=== PATIENT | female | born 1985 | race Caucasian/White ===

== ENCOUNTER 2025-03-09 09:05 | Outpatient (CLI) | payer MEDICAID, SELFPAY ==
--- NOTE | 2025-03-09 09:09 | CT_ITS ---
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 A noncontrast coronary calcium scan was performed. A CT attenuation threshold of 130 Hounsfield units (HU) was used for the detection of calcium in contiguous voxels of 1 sq mm in area to be counted as individual lesions. Bolus tracking in the ascending aorta with a threshold of 180 HU was performed. Immediately afterwards, ECG synchronized cardiac CT was then performed from the cardiac base to apex using retrospective gating with ECG tube current modulation. A total of 85 mL of Isovue 370 mg/mL contrast medium was administered at 5 mL/sec followed by a saline flush using a biphasic injection protocol. A tube voltage of 120 KVp was used. Image Reconstruction Transaxial images were reconstructed at 0.67 mm slide thickness. Data was reviewed interactively on an advanced workstation capable of 2 and 3-dimensional displays in all conventional reconstruction formats, including multiplanar reformations, maximum intensity projections, curved multiplanar reformations, and volume rendered reconstructions. When applicable, selected routine images describing the relevant coronary anatomy and pathology were saved and sent to PACS. Complications None Technical Quality Overall image quality was fair. Coronary artery opacification was fair. Total DLP (Dose-Length Product) is 2341.7 mGy-cm. The reported value represents the total of one or more individual components during the CT acquisition of this date and at this time, and as such, the same value may appear in more than one CT report depending on the interpreting/reporting physicians. COMPARISON None FINDINGS CT Coronary Calcium Scoring LMA (Left Main Artery) = 0 LAD (Left Anterior Descending) = 0 LCX (Left Coronary Circumflex) = 0 RCA (Right Coronary Artery) = 0 Total Calcium Score = 0 using the AJ-130 method. The interpretation of the calcium heart score is based on the following continuum*: 0 = no calcified plaque detected (risk of coronary artery disease is very low ??? less than 5%) 1-10 = calcium detected in extremely minimal levels (risk of coronary diseases is still low ??? less than 10%) 11-100 = mild levels of plaque detected with certainty (mild or minimal narrowing of heart arteries is likely) 101-400 = definite,at least moderate levels of plaque detected (relatively high risk of a heart attack within 3-5 years) >401-999 = extensive levels of plaque detected (high risk of heart attack, high levels of vascular disease are present, high likelihood of at least one significant coronary narrowing) *The calcium heart score quantifies the burden of coronary calcification/plaque in the coronary arteries. The calcium heart score is not able to evaluate the presence or burden of non-calcified (i.e. soft) plaque. There is no identifiable calcification in the aortic valve, mitral annulus or mitral valve, pericardium, or myocardium. Coronary CT Angiography The coronary arterial system is right dominant. Quantitative Stenosis Grading: Left Main (LM): The left main originates normally from the left sinus of Valsalva. The LM bifurcates into the left anterior descending artery and left circumflex artery. The LM is patent with no evidence of atherosclerosis. Left Anterior Descending (LAD) and Diagonal Branches: The LAD gives off 2 diagonal branch(es). The LAD and its branches are patent with no evidence of atherosclerosis. There is no evidence of LAD-myocardial bridge. Left Circumflex (LCX) and Obtuse Marginals (OM): The LCX gives off 1 Obtuse Marginal (OM) branch(es). The LCX and its branches are patent with no evidence of atherosclerosis. Right Coronary Artery (RCA): The RCA originates normally from the right sinus of Valsalva. The RCA gives off a posterior descending artery (PDA) and posterolateral (PL) branches. The RCA and its branches are patent with no evidence of atherosclerosis. Non-Coronary Cardiac Findings: Analysis of the left ventricular (LV) structure and function was performed after 3-D reconstruction of the LV from axial images, with user-corrected automatic contouring for assessment of LV volumes and user-defined reconstruction from oblique planes for measurement of 3-D cardiac structure and function. -The left ventricle systolic function is normal. -There is no left atrial appendage filling defect. Two right pulmonary veins and two left pulmonary veins drain normally into the left atrium. -No pericardial thickening or calcification. -Central and branch pulmonary arteries in the [id number] are unremarkable. -Thoracic aorta within the visualized thoracic aortic-branches in the [id number] is unremarkable. Extracardiac Structures No significant extra-cardiac findings. Note, however, that this study is focused on the cardiac findings. IMPRESSION -Fair image quality. -Absence of coronary calcification with an Agatston score = 0 using the AJ-130 method. -No evidence of significant flow-limiting atherosclerosis of the coronary arteries. -CAD-RADS 0. Management recommendations per ACC/AHA guidelines*, as clinically appropriate. *Recommendations: CAD RADS 0: Reassurance. Consider non-atherosclerotic causes of chest pain. CAD RADS 1: Consider non-atherosclerotic causes of chest pain. Consider preventive therapy and risk factor modification. CAD RADS 2: Consider non-atherosclerotic causes of chest pain. Consider preventive therapy and risk factor modification, particularly for patients with nonobstructive plaque in multiple segments. CAD RADS 3: Consider further functional testing. Consider symptom-guided anti-ischemic and preventive pharmacotherapy as well as risk factor modification per published guideline statements. CAD RADS 4A: Consider further functional testing or invasive coronary angiography with revascularization per published guideline statements. Consider symptom-guided anti-ischemic and preventive pharmacotherapy as well as risk factor modification per published guideline statements. CAD RADS 4B: Invasive coronary angiography recommended with revascularization per published guideline statements. Consider symptom-guided anti-ischemic and preventive pharmacotherapy as well as risk factor modification per published guideline statements. CAD RADS 5: Consider invasive angiography and/or viability assessment with revascularization per published guideline statements. Consider symptom-guided anti-ischemic and preventive pharmacotherapy as well as risk factor modification per published guideline statements. CRITICAL RESULT None COMMUNICATION Per this written report The coronary and cardiac findings of this CCTA were reviewed, reported, and signed by Moustapha Conley MD ([employer]) Conclusion Electronically signed by : Jamia Conley MD 03/13/2025 00:26:20
--- OUTSIDE RECORDS SUMMARY | 2025-03-09 09:09 | XMS_ITS | Data Portability ---
Author Organization [facility] Address [address] [place] [address] Assessment Encounter Date Assessment Date Assessment LastModified by Organization Details LastModified Time 02/06/2024 02/06/2024 -Medications were reviewed and any necessary updates and renewals were made, patient instructed to complete as prescribed. -The potential side effects of medications were discussed. -Counseling was done on care goals and ways to prevent future hospitalizatio ns. -Further treatment per orders listed below. Not available 02/06/2024 15:18:07 04/14/2024 04/14/2024 -Medications were reviewed and any necessary updates and renewals were made, patient instructed to complete as prescribed. -The potential side effects of medications were discussed. -Counseling was done on care goals and ways to prevent future hospitalizatio ns. -Further treatment per orders listed below. Not available 04/14/2024 11:35:05 Plan of Treatment Reminders Order Date Submit Date Provider Last Modified By Organization Details Last Modified Time Details Appointments None recorded. Lab CBC w/ auto diff 2024 025 SARAH [facility], [address], [address], [place], [address], 03:38:41 CMP, serum or plasma 2024 025 SARAH [facility], [address], [address], [place], [address], 03:38:43 TSH + free T4, serum 2024 025 SARAH [facility], [address], [address], [place], [address], 5 03:38:39 magnesium, serum or plasma 2024 025 SARAH [facility], [address], [address], [place], [address], 5 03:38:47 HbA1c (hemoglobin A1c), blood 2024 025 SARAH [facility], [address], [address], [place], [address], 5 03:38:46 cobalamin and folate panel, serum 2024 025 SARAH [facility], [address], [address] [address], [place], [address], 5 03:38:44 vitamin D, 25-hydroxy, total, serum 2024 025 SARAH [facility], [address], [address], [place], [address], 5 03:38:47 iron + total iron-bindin g capacity (TIBC), serum 2024 025 SARAH [facility], [address], [place] [address], [place], [address], 5 03:38:44 rapid SARS CoV + SARS CoV 2 Ag, QL IA, respiratory specimen [address], [address] [place], [address], 5 17:27:37 rapid flu (A+B) [address], [address] [place], [address], 5 17:27:37 rapid strep group A, throat 2024 025 [facility], [address] [place], [address], 5 17:27:37 C reactive protein, QN, serum or plasma 2023 SARAH [facility], [address], [address], [place], [address], 4 16:36:36 ESR (erythrocyt e sedimentati on rate), blood 2023 SARAH [facility], [address], [address], [place], [address], 4 16:36:34 KIN (antinuclea r antibodies) screen, serum 2023 024 SARAH [facility], [address], [address], [place], [address], 4 16:36:33 insulin, serum 2023 024 SARAH [facility], [address], [address] [address], [place], [address], 4 16:36:35 CMP, serum or plasma 2023 024 SARAH [facility], [address], [address], [place], [address], 4 16:36:29 CBC w/ auto diff 2023 024 SARAH [facility], [address], [address], [place], [address], 4 16:36:28 vitamin B12 + folate, serum or blood 2023 024 SARAH [facility], [address], [address], [place], [address], 4 16:36:31 lipid panel, serum 2023 024 SARAH [facility], [address], [address], [place], [address], 4 16:36:30 vitamin D, 25-hydroxy, total, serum 2023 024 SARAH [facility], [address], [address] [address], [place], [address], 4 16:36:33 TSH + free T4, serum 2023 [facility], [address], [place], [address], 4 16:36:27 HbA1c (hemoglobin A1c), blood 2023 024 SARAH [facility], [address], [address], [place], [address], 4 16:36:32 Referral otolaryngol ogist referral 2024 025 SARAH Cano MD, [address] [facility] , [address] [address], [place], [address], 5 07:40:06 Procedures None recorded. Surgeries None recorded. Imaging CT, chest, w/o contrast 2023 024 [facility], [address] [facility] , [place], [address], 4 12:15:37 Medication Orders levocetiriz ine 5 mg tablet 2024 025 [facility], [address] [facility], [place], [address], 5 15:10:15 benzonatate 200 mg capsule 2024 025 [facility], [address] [place] [address], [address], 5 17:05:53 Bromfed DM 2 mg-30 mg-10 mg/5 mL oral syrup [address], [address], 5 17:05:47 famotidine 40 mg tablet [address], [address], 5 15:05:39 doxycycline hyclate 100 mg capsule [address], [address], 4 08:58:21 Medrol (Sj) 4 mg tablets in a dose pack [address], [address], 5 14:28:21 Patient TargetsNo targets recorded. Patient Instructions Encounter Date Encounter Id Patient Instructions Last Modified By Organization Details Last Modified Time 02/06/2024 [id number] body mass index: care instructions Not available 02/06/2024 16:00:32 learning about healthy weight Not available 02/06/2024 16:00:32 Advised to take medication as directed Discussed importance of hydration and rest To call office for questions, concerns or issues Not available 02/06/2024 15:42:19 04/14/2024 [id number] body mass index: care instructions Not available 04/14/2024 17:47:08 learning about healthy weight Not available 04/14/2024 17:47:08 Advised to take medication as directed Encouraged to follow heart healthy lifestyle - low fat diet and aim for 30 minutes per day of physical exercise. To call office for questions, concerns or issues Not available 04/14/2024 11:59:49 07/05/2024 [id number] Advised to take medication as directed Will call with results of labs once available Encouraged to follow heart healthy lifestyle - low fat diet and aim for 30 minutes per day of physical exercise. To call office for questions, concerns or issues Not available 07/05/2024 09:26:56 11/15/2024 [id number] body mass index: care instructions Not available 11/15/2024 17:27:37 learning about healthy weight Not available 11/15/2024 17:27:37 Advised to take medication as directed Discussed importance of hydration To call office for questions, concerns or issues Not available 11/15/2024 15:12:46 12/21/2024 [id number] Advised to take medication as directed Will call with results of labs once available Advised if symptoms return to immediately go to ED - verbalized understanding Encouraged to follow heart healthy lifestyle - low fat diet and aim for 30 minutes per day of physical exercise. 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) [address] [place], [address], 07/06/2024 16:36:27 07/05/2007/06/2024 TSH+F REE T4 T4,free(dire ct) 1.06 NG/dL 0.82-1 .77 normal Not Available [facility] ([facility]) [address] [facility], [place], [address], 07/06/2024 16:36:27 07/05/20 24 07/06/2024 CBC WITH DIFFE RENTI AL/PL ATELE T WBC 10.2 x10e3 /uL 3.4-10 .8 normal Not Available [facility] ([facility]) [address] [facility], [place], [address], 07/06/2024 16:36:28 07/05/20 24 07/06/2024 CBC WITH DIFFE RENTI AL/PL ATELE T RBC 4.58 x10e6 /uL 3.77-5 .28 normal Not Available [facility] ([facility]) [address] [place], [address], 07/06/2024 16:36:28 07/05/20 24 07/06/2024 CBC WITH DIFFE RENTI AL/PL ATELE T hemoglobin 13.0 g/dL 11.1-1 5.9 normal Not Available [facility] ([facility]) [address] [place], [address], 07/06/2024 16:36:28 07/05/20 24 07/06/2024 CBC WITH DIFFE RENTI AL/PL ATELE T hematocrit 41.0 % 34.0-4 6.6 normal Not Available [facility] ([facility]) [address] [place], [address], 07/06/2024 16:36:28 07/05/20 24 07/06/2024 CBC WITH DIFFE RENTI AL/PL ATELE T MCV 90 fL 79-97 normal Not Available [facility] ([facility]) [address] [place], [address], 07/06/2024 16:36:28 07/05/20 24 07/06/2024 CBC WITH DIFFE RENTI AL/PL ATELE T MCH 28.4 pg 26.6-3 3.0 normal Not Available [facility] ([facility]) [address] [place], [address], 07/06/2024 16:36:28 07/05/20 24 07/06/2024 CBC WITH DIFFE RENTI AL/PL ATELE T MCHC 31.7 g/dL 31.5-3 5.7 normal Not Available [facility] ([facility]) [address] [facility], [place], [address], 07/06/2024 16:36:28 07/05/20 24 07/06/2024 CBC WITH DIFFE RENTI AL/PL ATELE T RDW 12.9 % 11.7-1 5.4 Not Available [facility] ([facility]) [address] [facility], [place], [address], 07/06/2024 16:36:28 07/05/20 24 07/06/2024 CBC WITH DIFFE RENTI AL/PL ATELE T platelets 344 x10e3 /uL 150-45 0 normal Not Available [facility] ([facility]) [address] [facility], [place], [address], 07/06/2024 16:36:28 07/05/20 24 07/06/2024 CBC WITH DIFFE RENTI AL/PL ATELE T neutrophils 75 % not estab. normal Not Available [facility] ([facility]) [address] [facility], [place], [address], 07/06/2024 16:36:28 07/05/20 24 07/06/2024 CBC WITH DIFFE RENTI AL/PL ATELE T lymphs 16 % not estab. normal Not Available [facility] ([facility]) [address] [facility], [place], [address], 07/06/2024 16:36:28 07/05/20 24 07/06/2024 CBC WITH DIFFE RENTI AL/PL ATELE T monocytes 6 % not estab. normal Not Available [facility] ([facility]) [address] [facility], [place], [address], 07/06/2024 16:36:28 07/05/20 24 07/06/2024 CBC WITH DIFFE RENTI AL/PL ATELE T eos 2 % not estab. normal Not Available [facility] ([facility]) [address] [place], [address], 07/06/2024 16:36:28 07/05/20 24 07/06/2024 CBC WITH DIFFE RENTI AL/PL ATELE T basos 1 % not estab. normal Not Available [facility] ([facility]) [address] [facility], [place], [address], 07/06/2024 16:36:28 07/05/20 24 07/06/2024 CBC WITH DIFFE RENTI AL/PL ATELE T immature cells TITLE ABSTRACTOR Not Available [facility] ([facility]) [address] [place], [address], 07/06/2024 16:36:28 07/05/20 24 07/06/2024 CBC WITH DIFFE RENTI AL/PL ATELE T neutrophils (absolute) 7.7 x10e3 /uL 1.4-7. 0 above high normal Not Available [facility] ([facility]) [address] [place], [address], 07/06/2024 16:36:28 07/05/20 24 07/06/2024 CBC WITH DIFFE RENTI AL/PL ATELE T lymphs (absolute) 1.6 x10e3 /uL 0.7-3. 1 normal Not Available [facility] ([facility]) [address] [place], [address], 07/06/2024 16:36:28 07/05/20 24 07/06/2024 CBC WITH DIFFE RENTI AL/PL ATELE T monocytes(ab solute) 0.6 x10e3 /uL 0.1-0. 9 normal Not Available [facility] ([facility]) [address] [place], [address], 07/06/2024 16:36:28 07/05/20 24 07/06/2024 CBC WITH DIFFE RENTI AL/PL ATELE T eos (absolute) 0.2 x10e3 /uL 0.0-0. 4 normal Not Available [facility] ([facility]) [address] [facility], [place], [address], 07/06/2024 16:36:28 07/05/20 24 07/06/2024 CBC WITH DIFFE RENTI AL/PL ATELE T baso (absolute) 0.1 x10e3 /uL 0.0-0. 2 normal Not Available [facility] ([facility]) [address] [facility], [place], [address], 07/06/2024 16:36:28 07/05/20 24 07/06/2024 CBC WITH DIFFE RENTI AL/PL ATELE T immature granulocytes 0 % not estab. Not Available [facility] ([facility]) [address] [facility], [place], [address], 07/06/2024 16:36:28 07/05/20 24 07/06/2024 CBC WITH DIFFE RENTI AL/PL ATELE T immature grans (abs) 0.0 x10e3 /uL 0.0-0. 1 Not Available [facility] ([facility]) [address] [facility], [place], [address], 07/06/2024 16:36:28 07/05/20 24 07/06/2024 CBC WITH DIFFE RENTI AL/PL ATELE T NRBC TITLE ABSTRACTOR Not Available [facility] ([facility]) [address] [facility], [place], [address], 07/06/2024 16:36:28 07/05/20 24 07/06/2024 CBC WITH DIFFE RENTI AL/PL ATELE T hematology comments: TITLE ABSTRACTOR Not Available [facility] ([facility]) [address] [facility], [place], [address], 07/06/2024 16:36:28 07/05/20 24 07/06/2024 COMP. METAB OLIC PANEL (14) glucose 102 mg/dL 70-99 above high normal Not Available [facility] ([facility]) [address] [place], [address], 07/06/2024 16:36:29 07/05/20 24 07/06/2024 COMP. METAB OLIC PANEL (14) BUN 16 mg/dL 6-20 normal Not Available [facility] ([facility]) [address] [place], [address], 07/06/2024 16:36:29 07/05/20 24 07/06/2024 COMP. METAB OLIC PANEL (14) creatinine 0.72 mg/dL 0.57-1 .00 normal Not Available [facility] ([facility]) [address] [place], [address], 07/06/2024 16:36:29 07/05/20 24 07/06/2024 COMP. METAB OLIC PANEL (14) eGFR 110 mL/mi n/1.7 3 >59 normal Not Available [facility] ([facility]) [address] [place], [address], 07/06/2024 16:36:29 07/05/20 24 07/06/2024 COMP. METAB OLIC PANEL (14) BUN/creatini ne ratio 22 9-23 normal Not Available [facility] ([facility]) [address] [place], [address], 07/06/2024 16:36:29 07/05/20 24 07/06/2024 COMP. METAB OLIC PANEL (14) sodium 140 mmol/ L 134-14 4 normal Not Available [facility] ([facility]) [address] [place], [address], 07/06/2024 16:36:29 07/05/20 24 07/06/2024 COMP. METAB OLIC PANEL (14) potassium 4.4 mmol/ L 3.5-5. 2 normal Not Available [facility] ([facility]) [address] [place], [address], 07/06/2024 16:36:29 07/05/20 24 07/06/2024 COMP. METAB OLIC PANEL (14) chloride 103 mmol/ L 96-106 normal Not Available [facility] ([facility]) [address] [place], [address], 07/06/2024 16:36:29 07/05/20 24 07/06/2024 COMP. METAB OLIC PANEL (14) carbon dioxide, total 23 mmol/ L 20-29 normal Not Available [facility] ([facility]) [address] [place], [address], 07/06/2024 16:36:29 07/05/20 24 07/06/2024 COMP. METAB OLIC PANEL (14) calcium 9.2 mg/dL 8.7-10 .2 normal Not Available [facility] ([facility]) [address] [place], [address], 07/06/2024 16:36:29 07/05/20 24 07/06/2024 COMP. METAB OLIC PANEL (14) protein, total 7.0 g/dL 6.0-8. 5 normal Not Available [facility] ([facility]) [address] [place], [address], 07/06/2024 16:36:29 07/05/20 24 07/06/2024 COMP. METAB OLIC PANEL (14) albumin 3.7 g/dL 3.9-4. 9 below low normal Not Available [facility] ([facility]) [address] [place], [address], 07/06/2024 16:36:29 07/05/20 24 07/06/2024 COMP. METAB OLIC PANEL (14) globulin, total 3.3 g/dL 1.5-4. 5 Not Available [facility] ([facility]) [address] [place], [address], 07/06/2024 16:36:29 07/05/20 24 07/06/2024 COMP. METAB OLIC PANEL (14) bilirubin, total <0.2 mg/dL 0.0-1. 2 Not Available [facility] ([facility]) [address] [place], [address], 07/06/2024 16:36:29 07/05/20 24 07/06/2024 COMP. METAB OLIC PANEL (14) alkaline phosphatase 107 IU/L 44-121 normal Not Available [facility] ([facility]) [address] [place], [address], 07/06/2024 16:36:29 07/05/20 24 07/06/2024 COMP. METAB OLIC PANEL (14) AST (SGOT) 41 IU/L 0-40 above high normal Not Available [facility] ([facility]) [address] [place], [address], 07/06/2024 16:36:29 07/05/20 24 07/06/2024 COMP. METAB OLIC PANEL (14) ALT (SGPT) 37 IU/L 0-32 above high normal Not Available [facility] ([facility]) [address] [place], [address], 07/06/2024 16:36:29 07/05/20 24 07/06/2024 LIPID PANEL cholesterol, total 127 mg/dL 100-19 9 normal Not Available [facility] ([facility]) [address] [place], [address], 07/06/2024 16:36:30 07/05/20 24 07/06/2024 LIPID PANEL triglyceride s 103 mg/dL 0-149 normal Not Available [facility] ([facility]) [address] [facility] [place], [address], 07/06/2024 16:36:30 07/05/20 24 07/06/2024 LIPID PANEL HDL cholesterol 37 mg/dL >39 below low normal Not Available [facility] ([facility]) [address] [facility], [place], [address], 07/06/2024 16:36:30 07/05/20 24 07/06/2024 LIPID PANEL VLDL cholesterol martin 19 mg/dL 5-40 Not Available [facility] ([facility]) [address] [facility], [place], [address], 07/06/2024 16:36:30 07/05/20 24 07/06/2024 LIPID PANEL LDL chol calc ([facility]) 71 mg/dL 0-99 Not Available [facility]) [address] [facility], [place], [address], 07/06/2024 16:36:30 07/05/20 24 07/06/2024 LIPID PANEL LDL calc comment: TITLE ABSTRACTOR Not Available [facility] ([facility]) [address] [facility], [place], [address], 07/06/2024 16:36:30 07/05/20 24 07/06/2024 VITAM IN B12 AND FOLAT E vitamin B12 335 pg/mL 232-12 45 normal Not Available [facility] ([facility]) [address] [facility], [place], [address], 07/06/2024 16:36:31 07/05/20 24 07/06/2024 VITAM IN B12 AND FOLAT E folate (folic acid), serum <2.0 NG/mL >3.0 below low normal Amanda ified by janea doug clarence sis A serum folat e bettie ntrat ion of less than 3.1 ng/mL is consi dered to repre sent clini martin defic iency . Not Available [facility] ([facility]) [address] [facility], [place], [address], 07/06/2024 16:36:31 07/05/20 24 07/06/2024 HEMOG LOBIN A1C hemoglobin A1C 6.3 % 4.8-5. 6 above high normal Predi abete s: 5.7 - 6.4 Diabe darnell: >6.4 Glyce stephanie contr ol for adult s with diabe darnell: <7.0 Not Available [facility] ([facility]) [address] [facility], [place], [address], 07/06/2024 16:36:32 07/05/20 24 07/06/2024 VITAM IN D, 25-HY DROXY vitamin D, 25-hydroxy 18.7 NG/mL 30.0-1 00.0 below low normal Vitam in D defic iency has been defin ed by the [facility] and an Endoc rine Socie ty pract ice guide line as a level of serum 25-OH vitam in D less than 20 ng/mL (1,2) . The Endoc rine Socie ty went on to furth er defin e vitam in D insuf ficie ncy as a level betwe en 21 and 29 ng/mL (2). 1. IOM ([facility]). 2009. Dieta ry refer ence huan es for calci um and D. Leah styles [place]: The [facility] . 2. Ford dias MF, Madeleine ey [place], Scooter off-F errar i WALTON, et al. Evalu ation , treat ment, and preve ntion of vitam in D defic iency : an Endoc rine Socie ty clini martin pract ice guide line. JCEM. 2010; 96(7) :1911 -30. Not Available [facility] ([facility]) [address] [facility], [place], [address], 07/06/2024 16:36:33 07/05/20 24 07/06/2024 ANTIN UCLEA R AB MULTI PLEX RFX 9 KIN direct Negati ve negati ve Not Available [facility] ([facility]) [address] [facility], [place], [address], 07/06/2024 16:36:33 07/05/20 24 07/06/2024 SEDIM ENTAT ION RATE- WESTE RGREN sedimentatio n rate-westerg mis 81 mm/HR 0-32 above high normal Not Available [facility] ([facility]) [address] [facility], [place], [address], 07/06/2024 16:36:34 07/05/20 24 07/06/2024 INSUL IN insulin 65.0 uIU/m L 2.6-24 .9 above high normal Not Available [facility] ([facility]) [address] [facility], [place], [address], 07/06/2024 16:36:35 07/05/20 24 07/06/2024 C-GRACE CTIVE PROTE IN, QUANT C-reactive protein, quant 21 mg/L 0-10 above high normal Not Available [facility] ([facility]) [address] [facility], [place], [address], 07/06/2024 16:36:36 11/16/19 25 11/15/2024 rapid flu (A+B) Flu negati ve Not Available [address] [address] [place], [address], 11/15/2024 14:37:20 11/16/19 25 11/15/2024 rapid SARS CoV + SARS CoV 2 Ag, QL IA, respi rator y speci men SARS CoV antigen Negati ve Not Available [facility] [address] [place], [address], 11/15/2024 14:37:12 11/16/19 25 11/15/2024 rapid strep group A, throa t Strep negati ve Not Available [facility] [address] [place], [address], 11/15/2024 14:37:21 12/22/19 25 12/22/2024 TSH+F REE T4 TSH 2.040 uIU/m L 0.450- 4.500 normal Not Available [facility] ([facility]) [address] [place], [address], 12/23/2024 03:38:39 12/22/19 25 12/22/2024 TSH+F REE T4 T4,free(dire ct) 0.99 NG/dL 0.82-1 .77 normal Not Available [facility] ([facility]) [address] [place], [address], 12/23/2024 03:38:39 12/22/19 25 12/22/2024 CBC WITH DIFFE RENTI AL/PL ATELE T WBC 12.7 x10e3 /uL 3.4-10 .8 above high normal Not Available [facility] ([facility]) [address] [place], [address], 12/23/2024 03:38:41 12/22/19 25 12/22/2024 CBC WITH DIFFE RENTI AL/PL ATELE T RBC 4.51 x10e6 /uL 3.77-5 .28 normal Not Available [facility] ([facility]) [address] [place], [address], 12/23/2024 03:38:41 12/22/19 25 12/22/2024 CBC WITH DIFFE RENTI AL/PL ATELE T hemoglobin 12.6 g/dL 11.1-1 5.9 normal Not Available [facility] ([facility]) [address] [place], [address], 12/23/2024 03:38:41 12/22/19 25 12/22/2024 CBC WITH DIFFE RENTI AL/PL ATELE T hematocrit 39.0 % 34.0-4 6.6 normal Not Available [facility] ([facility]) [address] [place], [address], 12/23/2024 03:38:41 12/22/19 25 12/22/2024 CBC WITH DIFFE RENTI AL/PL ATELE T MCV 87 fL 79-97 normal Not Available [facility] ([facility]) [address] [facility], [place], [address], 12/23/2024 03:38:41 12/22/19 25 12/22/2024 CBC WITH DIFFE RENTI AL/PL ATELE T MCH 27.9 pg 26.6-3 3.0 normal Not Available [facility] ([facility]) [address] [facility], [place], [address], 12/23/2024 03:38:41 12/22/19 25 12/22/2024 CBC WITH DIFFE RENTI AL/PL ATELE T MCHC 32.3 g/dL 31.5-3 5.7 normal Not Available [facility] ([facility]) [address] [facility], [place], [address], 12/23/2024 03:38:41 12/22/19 25 12/22/2024 CBC WITH DIFFE RENTI AL/PL ATELE T RDW 13.2 % 11.7-1 5.4 Not Available [facility] ([facility]) [address] [facility], [place], [address], 12/23/2024 03:38:41 12/22/19 25 12/22/2024 CBC WITH DIFFE RENTI AL/PL ATELE T platelets 306 x10e3 /uL 150-45 0 normal Not Available [facility] ([facility]) [address] [facility], [place], [address], 12/23/2024 03:38:41 12/22/19 25 12/22/2024 CBC WITH DIFFE RENTI AL/PL ATELE T neutrophils 73 % not estab. normal Not Available [facility] ([facility]) [address] [facility], [place], [address], 12/23/2024 03:38:41 12/22/19 25 12/22/2024 CBC WITH DIFFE RENTI AL/PL ATELE T lymphs 17 % not estab. normal Not Available [facility] ([facility]) [address] [facility], [place], [address], 12/23/2024 03:38:41 12/22/19 25 12/22/2024 CBC WITH DIFFE RENTI AL/PL ATELE T monocytes 7 % not estab. normal Not Available [facility] ([facility]) [address] [facility], [place], [address], 12/23/2024 03:38:41 12/22/19 25 12/22/2024 CBC WITH DIFFE RENTI AL/PL ATELE T eos 2 % not estab. normal Not Available [facility] ([facility]) [address] [facility], [place], [address], 12/23/2024 03:38:41 12/22/19 25 12/22/2024 CBC WITH DIFFE RENTI AL/PL ATELE T basos 1 % not estab. normal Not Available [facility] ([facility]) [address] [place], [address], 12/23/2024 03:38:41 12/22/19 25 12/22/2024 CBC WITH DIFFE RENTI AL/PL ATELE T immature cells TITLE ABSTRACTOR Not Available [facility] ([facility]) [address] [place], [address], 12/23/2024 03:38:41 12/22/19 25 12/22/2024 CBC WITH DIFFE RENTI AL/PL ATELE T neutrophils (absolute) 9.4 x10e3 /uL 1.4-7. 0 above high normal Not Available [facility] ([facility]) [address] [facility], [place], [place], [address], 12/23/2024 03:38:41 12/22/19 25 12/22/2024 CBC WITH DIFFE RENTI AL/PL ATELE T lymphs (absolute) 2.2 x10e3 /uL 0.7-3. 1 normal Not Available [facility] ([facility]) [address] [facility], [place], [address], 12/23/2024 03:38:41 12/22/19 25 12/22/2024 CBC WITH DIFFE RENTI AL/PL ATELE T monocytes(ab solute) 0.8 x10e3 /uL 0.1-0. 9 normal Not Available [facility] ([facility]) [address] [facility], [place], [address], 12/23/2024 03:38:41 12/22/19 25 12/22/2024 CBC WITH DIFFE RENTI AL/PL ATELE T eos (absolute) 0.2 x10e3 /uL 0.0-0. 4 normal Not Available [facility] ([facility]) [address] [place], [address], 12/23/2024 03:38:41 12/22/19 25 12/22/2024 CBC WITH DIFFE RENTI AL/PL ATELE T baso (absolute) 0.1 x10e3 /uL 0.0-0. 2 normal Not Available [facility] ([facility]) [address] [facility], [place], [address], 12/23/2024 03:38:41 12/22/19 25 12/22/2024 CBC WITH DIFFE RENTI AL/PL ATELE T immature granulocytes 0 % not estab. Not Available [facility] ([facility]) [address] [place], [address], 12/23/2024 03:38:41 12/22/19 25 12/22/2024 CBC WITH DIFFE RENTI AL/PL ATELE T immature grans (abs) 0.0 x10e3 /uL 0.0-0. 1 Not Available [facility] ([facility]) [address] [place], [address], 12/23/2024 03:38:41 12/22/19 25 12/22/2024 CBC WITH DIFFE RENTI AL/PL ATELE T NRBC TITLE ABSTRACTOR Not Available [facility] ([facility]) [address] [facility], [place], [address], 12/23/2024 03:38:41 12/22/19 25 12/22/2024 CBC WITH DIFFE RENTI AL/PL ATELE T hematology comments: TITLE ABSTRACTOR Not Available [facility] ([facility]) [address] [facility], [place], [address], 12/23/2024 03:38:41 12/22/19 25 12/22/2024 COMP. METAB OLIC PANEL (14) glucose 90 mg/dL 70-99 normal Not Available [facility] ([facility]) [address] [facility], [place], [address], 12/23/2024 03:38:43 12/22/19 25 12/22/2024 COMP. METAB OLIC PANEL (14) BUN 10 mg/dL 6-20 normal Not Available [facility] ([facility]) [address] [place], [address], 12/23/2024 03:38:43 12/22/19 25 12/22/2024 COMP. METAB OLIC PANEL (14) creatinine 0.59 mg/dL 0.57-1 .00 normal Not Available [facility] ([facility]) [address] [facility], [place], [address], 12/23/2024 03:38:43 12/22/19 25 12/22/2024 COMP. METAB OLIC PANEL (14) eGFR 118 mL/mi n/1.7 3 >59 normal Not Available [facility] ([facility]) [address] [place], [address], 12/23/2024 03:38:43 12/22/19 25 12/22/2024 COMP. METAB OLIC PANEL (14) BUN/creatini ne ratio 17 9-23 normal Not Available [facility] ([facility]) [address] [facility] [place], [address], 12/23/2024 03:38:43 12/22/19 25 12/22/2024 COMP. METAB OLIC PANEL (14) sodium 140 mmol/ L 134-14 4 normal Not Available [facility] ([facility]) [address] [facility] [place], [address], 12/23/2024 03:38:43 12/22/19 25 12/22/2024 COMP. METAB OLIC PANEL (14) potassium 4.4 mmol/ L 3.5-5. 2 normal Not Available [facility] ([facility]) [address] [facility] [place], [address], 12/23/2024 03:38:43 12/22/19 25 12/22/2024 COMP. METAB OLIC PANEL (14) chloride 101 mmol/ L 96-106 normal Not Available [facility] ([facility]) [address] [facility] [place], [address], 12/23/2024 03:38:43 12/22/19 25 12/22/2024 COMP. METAB OLIC PANEL (14) carbon dioxide, total 25 mmol/ L 20-29 normal Not Available [facility] ([facility]) [address] [facility] [place], [address], 12/23/2024 03:38:43 12/22/19 25 12/22/2024 COMP. METAB OLIC PANEL (14) calcium 9.3 mg/dL 8.7-10 .2 normal Not Available [facility] ([facility]) [address] [facility] [place], [address], 12/23/2024 03:38:43 12/22/19 25 12/22/2024 COMP. METAB OLIC PANEL (14) protein, total 6.9 g/dL 6.0-8. 5 normal Not Available [facility] ([facility]) [address] [place], [address], 12/23/2024 03:38:43 12/22/19 25 12/22/2024 COMP. METAB OLIC PANEL (14) albumin 3.7 g/dL 3.9-4. 9 below low normal Not Available [facility] ([facility]) [address] [place], [address], 12/23/2024 03:38:43 12/22/19 25 12/22/2024 COMP. METAB OLIC PANEL (14) globulin, total 3.2 g/dL 1.5-4. 5 Not Available [facility] ([facility]) [address] [facility] [place], [address], 12/23/2024 03:38:43 12/22/19 25 12/22/2024 COMP. METAB OLIC PANEL (14) bilirubin, total 0.3 mg/dL 0.0-1. 2 normal Not Available [facility] ([facility]) [address] [facility], [place], [address], 12/23/2024 03:38:43 12/22/19 25 12/22/2024 COMP. METAB OLIC PANEL (14) alkaline phosphatase 113 IU/L 44-121 normal Not Available [facility] ([facility]) [address] [facility] [place], [address], 12/23/2024 03:38:43 12/22/19 25 12/22/2024 COMP. METAB OLIC PANEL (14) AST (SGOT) 16 IU/L 0-40 normal Not Available [facility] ([facility]) [address] [facility] [place], [address], 12/23/2024 03:38:43 12/22/19 25 12/22/2024 COMP. METAB OLIC PANEL (14) ALT (SGPT) 21 IU/L 0-32 normal Not Available [facility] ([facility]) [address] [place] [place], [address], 12/23/2024 03:38:43 12/22/19 25 12/22/2024 IRON AND TIBC iron bind.cap.(TI BC) 340 ug/dL 250-45 0 normal Not Available [facility] ([facility]) [address] [place], [address], 12/23/2024 03:38:44 12/22/19 25 12/22/2024 IRON AND TIBC UIBC 289 ug/dL 131-42 5 normal Not Available [facility] ([facility]) [address] [place], [address], 12/23/2024 03:38:44 12/22/19 25 12/22/2024 IRON AND TIBC iron 51 ug/dL 27-159 normal Not Available [facility] ([facility]) [address] [place], [address], 12/23/2024 03:38:44 12/22/19 25 12/22/2024 IRON AND TIBC iron saturation 15 % 15-55 normal Not Available [facility] ([facility]) [address] [place], [address], 12/23/2024 03:38:44 12/22/19 25 12/22/2024 VITAM IN B12 AND FOLAT E vitamin B12 388 pg/mL 232-12 45 normal Not Available [facility] ([facility]) [address] [place], [address], 12/23/2024 03:38:44 12/22/19 25 12/22/2024 VITAM IN B12 AND FOLAT E folate (folic acid), serum 2.9 NG/mL >3.0 below low normal A serum folat e bettie ntrat ion of less than 3.1 ng/mL is consi dered to repre sent clini martin defic iency . Not Available [facility] ([facility]) [address] [place], [address], 12/23/2024 03:38:44 12/22/19 25 12/22/2024 HEMOG LOBIN A1C hemoglobin A1C 6.1 % 4.8-5. 6 above high normal Predi abete s: 5.7 - 6.4 Diabe darnell: >6.4 Glyce stephanie contr ol for adult s with diabe darnell: <7.0 Not Available [facility] ([facility]) [address] [facility], [place], [address], 12/23/2024 03:38:45 12/22/19 25 12/22/2024 VITAM IN D, 25-HY DROXY vitamin D, 25-hydroxy 30.7 NG/mL 30.0-1 00.0 Vitam in D defic iency has been defin ed by the Insti tute of Medic ine and an Endoc rine Socie ty pract ice guide line as a level of serum 25-OH vitam in D less than 20 ng/mL (1,2) . The Endoc rine Socie ty went on to furth er defin e vitam in D insuf ficie ncy as a level betwe en 21 and 29 ng/mL (2). 1. IOM (Inst itute of Medic ine). 2009. Dieta ry refer ence huan es for calci um and D. Leah styles [place]: [facility] . 2. Ford dias [place], Madeleine ey [place], Scooter off-F errar i [place], et al. Evalu ation , treat ment, and preve ntion of vitam in D defic iency : an Endoc rine Socie ty clini martin pract ice guide line. JCEM. 2010; 96(7) :1911 -30. Not Available [facility] ([facility]) [address] [facility], [place], [address], 12/23/2024 03:38:47 12/22/19 25 12/22/2024 MAGNE SIUM magnesium 2.3 mg/dL 1.6-2. 3 normal Not Available [facility] ([facility]) [address] [facility], [place], [address], 12/23/2024 03:38:47 04/12/20 24 03/29/2024 XR, chest , 2 view No observ ation record ed. Not Available 2023 11:59:18 05/05/20 24 04/28/2024 CT, chest , w/o contr ast No observ ation record ed. [address] , [place], [address], 05/05/2024 16:41:29 07/05/20 24 06/24/2024 MRI, brain , w/wo contr ast No observ ation record ed. Not Available 2023 12:26:08 Result Notes None recorded. Problems Name Problem SNOMED Code Status Onset Date Resolution Date Notes Provider Name and Address Organization Details Recorded Time Condylom a acuminat a of vulva 242474525 Completed 201711/06/2017 Leigh Ann hein, [place] - [facility] 8 09:15:57 Anemia 389556377 Completed 201711/06/2017 Leigh Ann hein, [place] - [facility] 8 09:31:27 Disorder of vitamin B12 971352242 Completed 201711/06/2017 Leigh Ann [place]in, [place] - [facility] 8 09:31:34 Morbid obesity 999521632 Active 2018 Bella Miranda MD [address], [place], [address] , [place] - [facility] 3 18:56:06 Essentia l hyperten gilberto 95065383 Active 2019 Crystal Abigail null[place] - [facility] 2 15:04:24 Asthma 949218847 Active 2019 Crystal Abigail null[place] [facility] 2 15:04:24 Suspecte d COVID-19 990503141 Completed 10/26/2020 Removal Reason: Problem added by user from the COVID-19 watch flag Crystal Abigail null[place] [facility] 1 09:14:54 Anxiety 51907092 Active 2020 Crystal Abigail [place] [facility] 15:04:24 Tachycar gregorio 6837706 Active 2020 Crystal Abigail [place] [facility] 2 15:04:24 Suspecte d COVID-19 694891516 Completed 07/13/2021 Removal Reason: Problem marked historic al by user from the COVID-19 watch flag Crystal Abigail null[place] [facility] 1 09:14:54 Abnormal uterine bleeding 04174617549 100 Active Bella Miranda MD [address], [place], [address] , [place] [facility] 3 18:55:49 Intraute rine contrace ptive device in situ 902830499 Active 2021 Bella Miranda MD [address], [place], [address] , [place] [facility] 3 18:56:00 Cyst of right ovary 69366550308 015232 Completed 202108/18/2023 Bella Miranda MD [address], [place], [address] , [place] [facility] 3 18:55:54 COVID-19 479109878 Completed 202107/11/2022 Crystal Abigail [place] [facility] 2 10:30:37 Allergic rhinitis 48100712 Active 2021 May Blanco APRN [address], [place], [address] , [place] [facility] 2 10:41:33 Menorrha trevon 614269756 Active 2022 Bella Miranda MD [address], [place], [address] , [place] [facility] 3 18:56:10 Gastroes ophageal reflux disease 220093037 Active 2022 May Blanco APRN [address], [place], [address] , [place] [facility] 13:23:34 Acute sinusiti s 27421905 Completed 202203/28/2023 Crystal Abigail null[place] [facility] 4 15:02:05 Herpes labialis 1936653 Active 2022 May Blanco, [employer] [address], [place], [address] , [place] [facility] 3 10:28:46 Pharyngi tis 389353952 Completed 202201/20/2024 Crystal Abigail null[place] [facility] 4 16:39:51 Mixed anxiety and depressi ve disorder 076498886 Active 2022 May Blanco, [employer] [address], [place], [address] , [place] [facility] 3 14:28:59 Acute lower respirat ory tract infectio n 643209002 Completed 202304/14/2024 Crystal Abigail null[place] [facility] 4 11:35:25 Nodule of lung 956955953 Active 2023 May Blanco, [employer] [address], [place], [address] , [place] [facility] 4 15:38:18 Acute sinusiti s 94879959 Completed 202307/12/2024 Crystal Abigail null[place] [facility] 4 15:02:05 Visual impairme nt 213035176 Active 2023 May Blanco, [employer] [address], [place], [address] , [place] [facility] 4 09:23:02 Hyperins ulinism 30163182 Active 2023 May Blanco, [employer] [address], [place], [address] , [place] [facility] 4 17:36:36 Vitamin D deficien cy 61823394 Active 2023 May Blanco, [employer] [address], [place], [address] , [place] [facility] 4 17:36:53 Visual disturba nce 23783145 Active 2023 May Blanco, [employer] [address], [place], [address] , [place] - [facility] 4 17:38:44 C-reacti ve protein above referenc e range 29072030070 9104 Active 2023 May Blanco, [employer] [address], [place], [address] , [place] [facility] 4 17:39:04 Prediabe darnell 377458910 Active 2023 Crystal Abigail null[place] [facility] 4 15:03:06 Seasonal allergy 691216572 Active 2024 May Blanco, [employer] [address], [place], [address] , [place] [facility] 5 15:08:48 Cough 84369642 Active 2024 May Blanco, [employer] [address], [place], [address] , [place] [facility] 5 15:09:25 Vasovaga l syncope 636084700 Active 2024 May Blanco, [employer] [address], [place], [address] , [place] [facility] 5 17:18:55 Vertigo 071187074 Active 2024 May Blanco, [employer] [address], [place], [address] , [place] [facility] 5 17:22:43 Problem Notes None recorded. Procedures Surgical History Date Name Laterality Status Provider Name and Address Organization Details Recorded Time 04/14/20 24 Medication Reconcilliation completed Crystal Abigail [place] - [facility] 04/14/2024 11:35:05 02/06/20 24 Medication Reconcilliation completed Crystal Abigail [place] [facility] 02/06/2024 15:18:07 05/22/20 23 Endometrial Biopsy completed Bella Miranda MD [address], [place], [address], [place] [facility] 05/22/2023 14:28:52 05/19/20 23 Medication Reconcilliation completed Luz Marina Campbell [place] [facility] 05/19/2023 09:12:00 05/03/20 22 Medication Reconcilliation completed Mariya Smith APRN [address], [place], [address], [place] [facility] 05/03/2022 22:55:10 07/04/20 21 IUD Insertion (Mirena) completed Bella Miranda MD [address], [place], [address], [place] [facility] 07/05/2021 09:45:25 06/01/20 21 dilation and curettage completed Mihaela Tune [place] [facility] 06/12/2021 08:32:50 06/01/20 21 Hysteroscopy completed Mihaela Paniagua [place] [facility] 06/12/2021 08:33:10 05/17/20 21 Medication Reconcilliation completed Crystal Abigail [place] [facility] 05/17/2021 14:48:50 02/17/20 21 Endometrial Biopsy completed Bella Miranda MD [address], [place], [address], [place] [facility] 02/19/2021 12:37:24 01/19/20 21 Medication Reconcilliation completed Crystal Abigail [place] [facility] 01/18/2021 08:30:10 01/09/20 21 Date of Last Pap Smear completed Delia Mack [place] [facility] 01/12/2021 16:35:09 10/28/19 21 Systolic B/P less than 130 mm Hg completed Crystal Abigail [place] [facility] 10/27/2020 08:45:01 10/28/19 21 Diastolic B/P 80-89 mm Hg completed Crystal Abigail [place] [facility] 10/27/2020 08:45:06 08/22/20 20 Medication Reconcilliation completed Mariya Smith APRN [address], [place], [address], [place] [facility] 08/21/2020 22:13:55 08/04/20 20 Diastolic B/P greater than or equal to 90 mm Hg completed Crystal Abigail [place] [facility] 08/04/2020 13:28:22 08/04/20 20 Systolic B/P greater than or equal to 140 mm Hg completed Crystal Abigail [place] [facility] 08/04/2020 13:28:18 05/05/20 20 Diastolic B/P 80-89 mm Hg completed Crystal Abigail [place] [facility] 05/05/2020 13:05:28 05/05/20 20 Systolic B/P greater than or equal to 140 mm Hg completed Crystal Abigail [place] [facility] 05/05/2020 13:05:25 04/17/20 20 Cholecystectomy, laparoscopic completed Crystal Abigail [place] [facility] 05/05/2020 13:04:07 03/30/20 20 Diastolic B/P greater than or equal to 90 mm Hg completed Crystal Abigail [place] [facility] 03/30/2020 16:42:42 03/30/20 20 Systolic B/P greater than or equal to 140 mm Hg completed Crystal Abigail [place] [facility] 03/30/2020 16:42:40 03/17/20 20 Diastolic B/P greater than or equal to 90 mm Hg completed Crystal Abigail [place] [facility] 03/17/2020 13:19:48 03/17/20 20 Systolic B/P greater than or equal to 140 mm Hg completed Crystal Abigail [place] [facility] 03/17/2020 13:19:46 02/10/20 12 Tubal Ligation completed Leigh Ann Lewis [place] [facility] 11/06/2017 09:24:51 08/25/18 95 Unlisted procedure nose completed Ayeshalg Beebe [place] [facility] 05/13/2019 08:34:21 Imaging Results None recorded. Procedure Notes None recorded. Medical Equipment None Reported. Allergies Allergen ID Allergen Name Allergen Category Reaction Reaction Severity Criticality Documentation Date Start Date Code Code System Note Provider Name and Address Organization Details Recorded Time 60853 morphine sulfate medicatio n Not available Not available Not available 05/31/20162007 40548 RxNorm Comme nt: Morph ine; Not Available [facility] 6 09:43:05 70431 morphine medicatio n itching severe Not available 11/06/20172020 7052 RxNorm Crystal Abigail null, [place] - [facility] 1 12:02:18 Medications Name Sig Start Date Stop Date Status Note LastModified by Organization Details LastModified Time losartan 50 mg tablet TAKE ONE (1) TABLET BY MOUTH EVERY DAY active Not Available Not Available No t Available fluoxetin e 40 mg capsule TAKE ONE (1) CAPSULE EVERY DAY BY ORAL ROUTE. active Not Available Not Available No t Available medroxypr ogesteron e 10 mg tablet TAKE ONE (1) TABLET EVERY DAY BY ORAL ROUTE. 08/01 completed Not Available Not Available Not Available Mirena 21 mcg/24 hr (up to 8 years) 52 mg intrauter ine device Take 1 device by intraute rine route. 2020 active Not Available Not Available Not Avai lable fluconazo le 100 mg tablet TAKE ONE (1) TABLET (ORAL) EVERY THREE (3) DAYS FOR 10 DAYS 05/19 completed Not Available Not Available Not Available atorvasta tin 40 mg tablet TAKE ONE (1) TABLET EVERY DAY BY ORAL ROUTE IN THE EVENING FOR 30 DAYS. active Not Available Not Available No t Available metformin 500 mg tablet TAKE ONE (1) TABLET TWICE A DAY BY ORAL ROUTE FOR 30 DAYS. 2024 active Not Available Not Available Not Avai lable ascorbic acid (vitamin C) 1,000 mg tablet Take 1000 mg by oral route. 02/05 completed Not Available Not Available Not Available acetamino phen 325 mg tablet Take 650 mg by oral route. 08/31 completed Not Available Not Available Not Available prednison e 10 mg tablet TAKE SIX (6) TABLETS BY MOUTH ON DAY ONE (1) THEN TAKE FIVE (5) TABLETS ON DAY TWO (2) THEN TAKE FOUR (4) TABLETS ON DAY THREE (3) THEN TAKE THREE (3) TABLETS ON DAY FOUR (4) THEN TAKE 2 TABLETS ON DAY FIVE (5) THEN TAKE 1 TABLET ON DAY SIX (6) 07/01 completed Not Available Not Available Not Available doxycycli ne hyclate 100 mg capsule TAKE ONE (1) CAPSULE TWICE A DAY BY ORAL ROUTE FOR 7 DAYS. 03/09 completed Not Available Not Available Not Available clindamyc in HCl 300 mg capsule TAKE ONE (1) CAPSULE (ORAL) THREE (3) TIMES PER DAY FOR 10 DAYS 05/19 completed Not Available Not Available Not Available lisinopri l 20 mg-hydroc hlorothia zide 12.5 mg tablet TAKE ONE (1) TABLET(S ) EVERY DAY BY ORAL ROUTE 01/18 completed Not Available Not Available Not Available azithromy giovanna 250 mg tablet TAKE ONE (1) TABLET ORAL ROUTE ONCE DAILY FOR FOUR (4) DAYS 02/05 completed Not Available Not Available Not Available ibuprofen 800 mg tablet TAKE ONE (1) TABLET (800 MG) BY ORAL ROUTE THREE (3) TIMES PER DAY WITH FOOD 02/17 completed Not Available Not Available Not Available benzonata te 200 mg capsule TAKE ONE (1) CAPSULE THREE (3) TIMES A DAY BY ORAL ROUTE FOR 10 DAYS. 12/21 completed Not Available Not Available Not Available valacyclo vir 1 gram tablet TAKE ONE (1) TABLET EVERY 12 HOURS BY ORAL ROUTE FOR ONE (1) DAY. 05/19 completed Not Available Not Available Not Available clarithro mycin 500 mg tablet Take 1 tablet every 12 hours by oral route for 10 days. 01/01 completed Not Available Not Available Not Available hydrocodo ne 5 mg-acetam inophen 325 mg tablet 05/05 completed Not Available Not Available Not Available ondansetr on HCl 8 mg tablet Take 1 tablet every 8 hours by oral route as needed. 05/05 completed Not Available Not Available Not Available sucralfat e 1 gram tablet TAKE ONE (1) TABLET ORAL ROUTE THREE (3) TIMES PER DAY FOR 10 DAYS ON AN EMPTY STOMACH ON WAKING AND AT BEDTIME active Not Available Not Available No t Available famotidin e 40 mg tablet TAKE ONE (1) TABLET EVERY DAY BY ORAL ROUTE FOR 90 DAYS. active Not Available Not Available No t Available prednison e 20 mg tablet Take 1 tablet 3 times a day by oral route as directed for 5 days. 10/27 completed Not Available Not Available Not Available acyclovir 400 mg tablet TAKE ONE (1) TABLET EVERY 8 HOURS BY ORAL ROUTE FOR 7 DAYS. 08/31 completed Not Available Not Available Not Available sulfameth oxazole 800 mg-trimet hoprim 160 mg tablet TAKE ONE (1) TABLET BY ORAL ROUTE EVERY 12 HOURS FOR 10 DAYS 05/19 completed Not Available Not Available Not Available aspirin 81 mg tablet,de layed release TAKE ONE (1) TABLET EVERY DAY BY ORAL ROUTE FOR 30 DAYS. active Not Available Not Available No t Available amoxicill in 500 mg tablet take 1 tablet (500 mg) by oral route 3 times per day for 10 days 10/23 completed amoxicil arturo 500 mg oral tablet;P rescribe Status: Prescrib ed on: 09/29/19 15 10:15AM; Disconti nued Status: Disconti nued on: 10/24/19 16 12:43PM; User: [email or web address];Es t. Completi on: 10/09/19 15;Pharm acyVerif ied: 09/29/19 15 10:15AM Not Available Not Available Not Available Macrobid 100 mg capsule take 1 capsule (100 mg) by oral route every 12 hours with food for 7 days 11/05 completed Macrobid 100 mg oral capsule; Recorded Status: Recorded on: 10/01/19 12 9:15AM;D iscontin ued Status: Disconti nued on: 11/06/19 12 4:43PM;U ser: [email or web address];Es t. Completi on: 10/08/19 12;Indic ation: pyuria - (791.7); Printed: 10/01/19 12 Not Available Not Available Not Available Vitamin tablet take 1 tablet by oral route once daily for 30 days 04/16 completed Vitamin Oral Tablet;R ecorded Status: Recorded on: 10/28/19 10 2:50PM;D iscontin ued Status: Disconti nued on: 04/16/20 11 2:13PM;U ser: [email or web address];E st. Completi on: 10/22/19 11;Indic ation: Pregnanc y - ([id number].[id number]);Prin annie: 10/28/19 10 Not Available Not Available Not Available Tessalon Perles 100 mg capsule take 1 capsule (100 mg) by oral route 3 times per day for 7 days 05/24 completed Tessalon Perles 100 mg oral capsule; Prescrib e Status: Prescrib ed on: 03/18/20 14 2:17PM;D iscontin ued Status: Disconti nued on: 05/24/20 14 11:02AM; User: [email or web address];Es t. Completi on: 03/25/20 14;Indic ation: Cough - (16.7862 00);Phar macyVeri fied: 03/18/20 14 2:17PM Not Available Not Available Not Available propranol ol 10 mg tablet TAKE ONE (1) TABLET BY MOUTH TWICE DAILY active Not Available Not Available No t Available Metrogel Vaginal 0.75 % (37.5 mg/5 gram) insert 1 applicat orful (37.5 mg) by vaginal route once daily at bedtime for 5 days 06/01 completed Metrogel Vaginal 0.75 % vaginal gel;Janusz rded Status: Recorded on: 04/26/20 10 11:06AM; Disconti nued Status: Disconti nued on: 06/01/20 10 1:41PM;U ser: [email or web address];E st. Completi on: 05/01/20 10;Indic ation: Bacteria l Vaginosi s - (3347 ) Not Available Not Available Not Available famotidin e 20 mg tablet TAKE ONE (1) TABLET BY ORAL ROUTE TWO (2) TIMES PER DAY 12/21 completed Not Available Not Available Not Available Nortrel 1/35 (28) 1 mg-35 mcg tablet Take 1 tablet every day by oral route. 03/17 completed Not Available Not Available Not Available meclizine 25 mg tablet Take 1 tablet 3 times a day by oral route as needed for 15 days. 01/19 completed Not Available Not Available Not Available cephalexi n 500 mg capsule TAKE ONE (1) CAPSULE TWICE A DAY BY ORAL ROUTE FOR 10 DAYS. 07/13 completed Not Available Not Available Not Available pantopraz ole 40 mg tablet,de layed release TAKE ONE (1) TABLET EVERY DAY BY ORAL ROUTE FOR 90 DAYS. active Not Available Not Available No t Available ferrous sulfate 325 mg (65 mg iron) tablet take 1 tablet (325 mg) by oral route 3 times per day for 30 days 04/16 completed ferrous sulfate 325 mg (65 mg iron) oral tablet;R ecorded Status: Recorded on: 04/26/20 10 11:06AM; Disconti nued Status: Disconti nued on: 04/16/20 11 2:13PM;U ser: [email or web address];E st. Completi on: 11/23/19 11;Indic ation: Iron Deficien cy Anemia - (280 ) Not Available Not Available Not Available lisinopri l 10 mg tablet TAKE 1 TABLET BY MOUTH EVERY DAY 10/27 completed Not Available Not Available Not Available fluoxetin e 10 mg capsule Take 10 mg by oral route. 07/13 completed Not Available Not Available Not Available triamtere ne 37.5 mg-hydroc hlorothia zide 25 mg tablet TAKE ONE (1) TABLET EVERY DAY BY ORAL ROUTE FOR 90 DAYS. 2024 active Not Available Not Available Not Avai lable lisinopri l 20 mg-hydroc hlorothia zide 25 mg tablet TAKE 1 TABLET BY MOUTH EVERY DAY 04/06 completed Not Available Not Available Not Available norgestim ate-ethin yl estradiol 0.18mg/0. 215mg/0.2 5mg-0.035 mg(28)tab let TAKE 1 TABLET BY MOUTH EVERY DAY active Not Available Not Available No t Available mont[address] [facility] 10 mg tablet TAKE ONE (1) TABLET BY MOUTH EVERY DAY 2024 active Not Available Not Available Not Avai lable hydroxyzi ne HCl 25 mg tablet TAKE ONE (1) TABLET TWICE A DAY BY ORAL ROUTE NEEDED 2024 active Not Available Not Available Not Avai lable mupirocin 2 % topical ointment APPLY TOPICALL Y THREE (3) TIMES PER DAY FOR 10 DAYS 05/19 completed Not Available Not Available Not Available furosemid e 20 mg tablet TAKE ONE (1) TABLET EVERY DAY BY ORAL ROUTE NEEDED active Not Available Not Available No t Available ergocalci ferol (vitamin D2) 1,250 mcg (50,000 unit) capsule TAKE ONE (1) CAPSULE BY MOUTH EVERY WEEK 2024 active Not Available Not Available Not Avai lable dexametha sone sodium phosphate 4 mg/mL injection solution Inject 1 mL by intramus cular route. 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 11/15 completed Not Available Not Available Not Available Naprosyn 500 mg tablet take 1 tablet (500 mg) by oral route 2 times per day with food for 30 days 03/18 completed Naprosyn 500 mg oral tablet;P rescribe Status: Prescrib ed on: 01/07/20 14 2:08PM;D iscontin ued Status: Disconti nued on: 03/18/20 14 2:00PM;U ser: gored;Es t. Completi on: 03/07/20 14;Pharm acyVerif ied: 01/07/20 14 2:08PM Not Available Not Available Not Available brompheni ramine-ps eudoephed rine-DM 2 mg-30 mg-10 mg/5 mL oral syrup TAKE 10 ML EVERY FOUR (4) HOURS BY ORAL ROUTE NEEDED FOR FIVE (5) DAYS, FOR COUGH. 12/21 completed Not Available Not Available Not Available ondansetr on 4 mg disintegr ating tablet DISSOLVE ONE (1) TABLET BY SUBLINGU AL ROUTE EVERY FOUR (4) HOURS 06/15 completed Not Available Not Available Not Available cefdinir 300 mg capsule TAKE ONE (1) CAPSULE EVERY 12 HOURS BY ORAL ROUTE FOR 10 DAYS. 10/16 completed Not Available Not Available Not Available fluoxetin e 20 mg capsule Take 1 capsule every day by oral route for 30 days. 02/21 completed Not Available Not Available Not Available fluticaso ne propionat e 50 mcg/actua tion nasal spray,anusha pension INSTILL ONE (1) SPRAY EVERY DAY BY INTRANAS AL ROUTE active Not Available Not Available No t Available amoxicill in 875 mg-potass ium clavulana te 125 mg tablet TAKE ONE (1) TABLET BY ORAL ROUTE EVERY 12 HOURS FOR 7 DAYS 02/17 completed Not Available Not Available Not Available amoxicill in 500 mg-potass ium clavulana te 125 mg tablet TAKE 1 TABLET BY MOUTH EVERY 8 HOURS FOR 10 DAYS 04/14 completed Not Available Not Available Not Available Ventolin HFA 90 mcg/actua tion aerosol inhaler INHALE TWO (2) PUFFS EVERY FOUR (4) HOURS NEEDED active Not Available Not Available No t Available meclizine 25 mg chewable tablet TAKE ONE (1) TABLET THREE (3) TIMES A DAY BY ORAL ROUTE NEEDED FOR 15 DAYS. 2024 active Not Available Not Available Not Avai lable albuterol (refill) 90 mcg/actua tion aerosol inhaler 02/21 completed Not Available Not Available Not Available cyclobenz aprine 5 mg tablet TAKE ONE (1) TABLET EVERY 8 HOURS BY ORAL ROUTE NEEDED FOR 10 DAYS. 01/19 completed Not Available Not Available Not Available cholestyr amine (with sugar) 4 gram powder for susp in a packet TAKE ONE (1) PACKET BY MOUTH EVERY DAY active Not Available Not Available No t Available 27 mg iron-0.8 mg tablet take 1 tablet by oral route once daily for 30 days 03/18 completed 27-0.8 mg oral tablet;R ecorded Status: Recorded on: 04/16/20 11 2:21PM;D iscontin ued Status: Disconti nued on: 03/18/20 14 2:00PM;U ser: ringm;Es t. Completi on: 04/10/20 12;Indic ation: Pregnanc y - (18.V222 00);Prin annie: 04/16/20 11 Not Available Not Available Not Available aspirin 81 mg po daily 07/13 completed Not Available Not Available Not Available Advair HFA 115 mcg-21 mcg/actua tion aerosol inhaler Inhale 2 puffs twice a day by inhalati on route for 30 days. 02/21 completed Not Available Not Available Not Available levocetir izine 5 mg tablet TAKE ONE (1) TABLET EVERY DAY BY ORAL ROUTE FOR 90 DAYS. 2024 active Not Available Not Available Not Avai lable OneTouch Verio test strips DIRECTED TO CHECK BLOOD SUGAR EVERY DAY active Not Available Not Available No t Available OneTouch Verio Flex Meter active Not Available Not Available Not Available Natalie 0.25 mg-0.035 mg tablet take 1 tablet TID x 1 week 06/15 completed Not Available Not Available Not Available OneTouch Delica Plus Lancet 33 gauge DIRECTED TO TEST BLOOD SUGAR EVERY DAY active Not Available Not Available No t Available Vitals Date Recorded Body height Body mass index (BMI) Body weight Body temperature Heart rate Oxygen saturation Oxygen saturation in Arterial blood by Pulse oximetry Respiratory rate Systolic And Diastolic Provider Name and Address Organization Details Last Updated DateTime 5 167.64 cm 59.6 kg/m2 862508. 58 g 98.8 [degF] 87 /min 97 % 97 % 18 /min 138/84 mm[Hg] Crystal Abigail [place] - [facility] 5 14:32:49 Date Recorded Body height Body mass index (BMI) Body weight Heart rate Oxygen saturation Oxygen saturation in Arterial blood by Pulse oximetry Respiratory rate Body temperature Systolic And Diastolic Provider Name and Address Organization Details Last Updated DateTime 5 167.64 cm 59.7 kg/m2 665237. 18 g 92 /min 98 % 98 % 18 /min 97.9 [degF] 152/94 mm[Hg] Delia Gianluca delatorre [place] - [facility] 5 16:51:26 Date Recorded Body height Body mass index (BMI) Body weight Heart rate Oxygen saturation Oxygen saturation in Arterial blood by Pulse oximetry Respiratory rate Body temperature Systolic And Diastolic Provider Name and Address Organization Details Last Updated DateTime 4 167.64 cm 57.3 kg/m2 659466. 29 g 80 /min 96 % 96 % 18 /min 98.3 [degF] 112/70 mm[Hg] Crystal Abigail [place] - [facility] 4 15:24:39 Date Recorded Systolic And Diastolic Provider Name and Address Organization Details Last Updated DateTime 04/14/2024 138/72 mm[Hg] May Blanco , [employer] [address], [place], [address], [place] - [facility] 04/14/2024 11:56:28 Date Recorded Body height Body mass index (BMI) Body weight Heart rate Oxygen saturation Oxygen saturation in Arterial blood by Pulse oximetry Respiratory rate Systolic And Diastolic Provider Name and Address Organization Details Last Updated DateTime 4 167.64 cm 58.9 kg/m2 232188. 22 g 84 /min 97 % 97 % 20 /min 182/112 mm[Hg] Crystal Abigail [place] - [facility] 4 11:41:16 Date Recorded Body weight Heart rate Oxygen saturation Oxygen saturation in Arterial blood by Pulse oximetry Respiratory rate Systolic And Diastolic Provider Name and Address Organization Details Last Updated DateTime 4 758086. 25 g 77 /min 97 % 97 % 18 /min 126/80 mm[Hg] Formerly Named [facility] [place] - [facility] 4 09:02:05 Social History Question Answer Notes LastModified by Organizat ion Details LastModified Time Tobacco Smoking Status Never Smoker Leigh Ann Lewis angel luis, [place] - [facility] 11/06/2017 09:19:36 Do You Have An Advance Directive? No [email or web address] Information not available 05/13/2019 Are You Blind Or Do You Have Difficulty Seeing? No Information not available 10/16/2021 Is Blood Transfusion Acceptable In An Emergency? Yes [email or web address] Information not available 05/13/2019 What Is Your Level Of Caffeine Consumption? Moderate [email or web address] Information not available 05/13/2019 How Much Tobacco Do You Chew? None [email or web address] Information not available 11/06/2017 In The 14 Days Before Symptom Onset, Have You Had Close Contact With A Laboratory-confir med COVID-19 While That Case Was Ill? No Information not available 02/17/2023 In The 14 Days Before Symptom Onset, Have You Had Close Contact With A Person Who Is Under Investigation For COVID-19 While That Person Was Ill? No [email or web address] Information not available 02/17/2023 Have You Been To An Area Known To Be High Risk For COVID-19? No Information not available 10/16/2021 Are You Deaf Or Do You Have Serious Difficulty Hearing? Yes Information not available 10/16/2021 What Type Of Diet Are You Following? REGULAR [email or web address] Information not available 11/06/2017 Which Illicit Or Recreational Drugs Have You Used? None [email or web address] Information not available 05/13/2019 Have You Processed Blood Or Body Fluids From An Ebola Virus Disease Patient Without Appropriate PPE? No Information not available 10/16/2021 Do You Reside In Or Have You Traveled To An Area Where Ebola Virus Transmission Is Active? No Information not available 10/16/2021 What Is The Highest Grade Or Level Of School You Have Completed Or The Highest Degree You Have Received? [id number] [email or web address] Information not available 11/06/2017 How Many Days Of Moderate To Strenuous Exercise, Like A Brisk Walk, Did You Do In The Last 7 Days? 1 Information not available 10/16/2021 On Those Days That You Engage In Moderate To Strenuous Exercise, How Many Minutes, On Average, Do You Exercise? 1 Information not available 10/16/2021 Have There Been Any Changes To Your Family Or Social Situation? No Information no t available 10/16/2021 How Hard Is It For You To Pay For The Very Basics Like Food, Housing, Medical Care, And Heating? Not Very Hard Information not available 10/16/2021 What Is The Fluoride Status Of Your Home? Unknown Information not available 10/16/2021 Hard Of Hearing Or Deaf In One Or Both Ears? No Information not available 10/16/2021 Have You Recently Or Are You Planning To Travel To An Area With Zika Virus? No Information not available 10/16/2021 Legally Blind In One Or Both Eyes? No Information no t available 10/16/2021 Live Alone Or With Others? With Others Information not available 10/16/2021 Last Menstrual Period? 08/20/2021 Information not available 08/31/2021 What Was The Date Of Your Most Recent Tobacco Screening? 11/15/2024 Information not available 11/15/2024 How Many Children Do You Have? 3 [email or web address] Information not available 11/06/2017 Performs Monthly Self-breast Exam? No Information no t available 10/16/2021 Do You Use Protection During Sex? Always Tubal [email or web address] Information not available 05/13/2019 Do You Use Protection Against STDs? No Information not available 10/16/2021 What Is Your Relationship Status? [email or web address] Information not available 05/13/2019 Do You Use Your Seat Belt Or Car Seat Routinely? Yes Information not available 05/17/2021 Seat Belts Used Routinely Yes Information not available 10/16/2021 Are You Sexually Active? Yes Information not available 10/16/2021 Do You Have Smoke And Carbon Monoxide Detectors In Your Home? Yes Information not available 05/17/2021 Are You Passively Exposed To Smoke? Yes Information no t available 08/31/2021 How Much Tobacco Do You Smoke? No Information not available 10/16/2021 General Stress Level Medium Information not available 10/16/2021 Do You Use Sunscreen Routinely? Yes [email or web address] Information not available 11/06/2017 Has Tobacco Cessation Counseling Been Provided? Yes Information not available 10/16/2021 On What Date Was Tobacco Cessation Counseling Provided? 11/15/2024 Information not available 11/15/2024 How Many Years Have You Smoked Tobacco? 0 [email or web address] Information not available 11/06/2017 Do You Have Difficulty Walking Or Climbing Stairs? No Information not available 10/16/2021 What Contraceptive Method Was Reported At End Of This Visit? IUD Unspecified Information not available 10/16/2021 Sex: Female Functional Status Question Answer Note LastModified by Organizat ion Details LastModified Time Do you or have you ever used smokeless tobacco? Never used smokeless tobacco [email or web address] Information not available 05/13/2019 Are you currently employed? Yes Information not available 08/31/2021 Do you have transportation difficulties? No [email or web address] Information not available 02/17/2023 Urinary incontinence assessment performed? Yes Information not available 10/16/2021 Are you able to care for yourself? Yes [email or web address] Information n ot available 11/06/2017 Do you have difficulty dressing or bathing? No Information not available 10/16/2021 Do you or have you ever used e-cigarettes or vape? Never used electronic cigarettes [email or web address] Information not available 05/13/2019 What is your exercise level? Occasional [email or web address] Information not available 11/06/2017 Do you use any illicit or recreational drugs? No Information not available 10/16/2021 Do you or have you ever used any other forms of tobacco or nicotine? No Information not available 07/11/2022 What is your level of alcohol consumption? None [email or web address] Information not available 11/06/2017 What is your status? Not Information no t available 10/16/2021 Are you able to walk? [email or web address] Information not available 10/16/2021 Do you have difficulty doing errands alone? No Information not available 10/16/2021 What is your occupation? [employer] [email or web address] Information not available 02/17/2023 Mental Status Question Answer Note LastModified by Organizat ion Details LastModified Time Do you feel stressed (tense, restless, nervous, or anxious, or unable to sleep at night)? [id number] [email or web address] Information not available 02/17/2023 Do you have difficulty concentrating, remembering or making decisions? No Information no t available 10/16/2021 Family History Relationship Description Onset Age of this Age Resolved Age Notes LastModified by Organization Details LastModified Time Brother Asthma [email or web address] Not available 11/06/2017 09:17:08 Sister Asthma [email or web address] Not available 0 08/31/2021 11:03:46 Sister Anxiety disorder Not available 2017 09:27:09 Maternal Grandmother Diabetes mellitus [email or web address] Not available 2017 09:17:24 Maternal Grandmother Malignant tumor of breast [email or web address] Not available 2017 09:17:40 Maternal Grandmother Neoplasm of ovary [email or web address] Not available 2021 11:03:46 Maternal Grandmother Hypertensive disorder [email or web address] Not available 2017 09:18:38 Maternal Aunt Diabetes mellitus [email or web address] Not available 2021 11:03:46 Maternal Aunt Malignant tumor of breast [email or web address] Not available 2017 09:17:40 Paternal Grandfather Carcinoma of lung [email or web address] Not available 2021 11:03:46 Paternal Grandfather Hypertensive disorder [email or web address] Not available 2021 11:03:46 Paternal Grandfather Cerebrovascu lar accident [email or web address] Not available 09:18:52 Paternal Grandfather Diabetes mellitus [email or web address] Not available 2021 11:03:46 Unspecified Relation Malignant neoplasm of skin [email or web address] Not available 2021 11:03:46 Maternal Grandfather Hypertensive disorder [email or web address] Not available 2017 09:18:23 Mother Neoplasm of uterine cervix [email or web address] Not available 2021 11:03:46 Mother Disorder of thyroid gland [email or web address] Not available 2017 09:25:51 Mother Hypertensive disorder Not available 2017 09:26:00 Father Hypertensive disorder [email or web address] Not available 2017 09:25:57 Paternal Aunt Diabetes mellitus [email or web address] Not available 2021 11:03:46 Medical History Condition Response Pancreatitis N Other N Atrial Fibrillation N congenital heart disease N Blood Diseases N Hyperthyroidism N Rheumatoid arthritis N Blood Transfusion N Erectile Dysfunction N amputation N Skin Lesions N Depression N Pneumonia N Incontinence N Murmur N Edema N Alzheimer's Disease N Migraine Headaches N Tobacco Abuse N Anxiety Disorder N Hemorrhoids N Obesity Y Vision or Eye Problems Y Arthritis N Restless Leg Syndrome N Polyps N Infertility N Carpal Tunnel N Acid Reflux (GERD) N Cancer N Varicosities N Stroke N Tendonitis N Crohn's Disease N Hypercholesterolemia N Skin Cancer N Headaches N Fibromyalgia N Irritable Bowel Syndrome N Anal Fissure N Kidney Disease N Heart Problems N Ear or Hearing Problems Y Hospitalizations Y Gallstones N Kidney or Bladder Problems N Goiter N Acne N Eating Disorder N Winters's Esophagus N Hypertriglyceridemia N Constipation N Embolism N Vitamin B12 Deficiency N Deviated Septum N AIDS/HIV N Myocardial Infarction N Asthma Y Mitral Valve Disorders N Vertigo N Hepatitis N Thyroid Cancer N Neuropathy N History of DVT N Herniated Disc N Chicken Pox Y Von Willebrands Disease N Thrombophilias N Breast Cancer N Hernia N Plantar Fasciitis N Hypothyroidism N Lung Disease N Defects or Inherited Disease N Breast Problem N Ovarian Cyst N Anesthesia Complications N Testosterone Deficiency N Interstitial Cystitis N Congenital Anomalies N Hypoglycemia N Blood clot N Vitamin D Deficiency N Cellulitis N Endometriosis N Bladder or Kidney Problems N Fracture N Panic Disorder N Schizophrenia N Concussion N Spina Bifida N Osteoarthritis N Parkinson's Disease N Disc Protrusion N STI N Esophagitis N Angina N Thyroid Problems N GI Problems N ADD/ADHD N Anemia Y Multiple Sclerosis N Abnormal PAP N Lumbago N Mental Illness N Psychiatric Illness N Diabetes N Ovarian Cancer N Degenerative Disc Disease N Seizures/Epilepsy N Hyperlipidemia N Syncope N Insomnia N Eczema N Abuse/Domestic Violence N Attention Deficient Disorder N Dementia N Ulcerative colitis N Cerebrovascular Disease N Depression N Guillain-Ocate N Sleep Apnea N Aneurysm N Bronchitis N Heart Disease N Hypertension Y Pre-Eclampsia N Suicidal Ideation N Osteoporosis N Gynecological History Statement/Question Response Abnormal Pap N Date of Last Mammogram Flow Heavy Date of LMP 12/12/2025 Post Menopausal Bleeding N STIs/STDs N HPV Vaccine N Duration of Flow (days) 5 Most Recent Mammogram Current Control Method Tubal Ligat ion Age at Menarche 18 Age at First Child 22 Date of Last Colonoscopy Frequency of Cycle (Q days) 28 Most Recent Bone Density Sexually Active? Y Date of Last Cervical Culture 05/13/2019 Menses Monthly N Date of Last Pap Smear 01/08/2021 Sexual Problems? N LMP Definite Hormone Replacement Therapy N Obstetrics History GPAL:G 3 P 3 0 0 3 Type Value Full Term 3 Living 3 Total 3 Immunizations Vaccine Type Date Status Note Provider Name and Address Organization Details Recorded Time Influenza, split virus, quadrivalent, preservative 06/26/20 20 completed Teena Sagastume null, [place] - [facility] 06/26/2020 08:39:32 Influenza, split virus, quadrivalent, preservative 06/15/20 21 completed Teena Lezama RN [address], [place], [address] [place] - [facility] 06/15/2021 09:32:57 influenza, unspecified formulation 05/11/20 10 completed Not Available [facility] 08/01/2023 14:31:26 Influenza, split virus, quadrivalent, preservative 11/07/19 18 cancelled patient objection Not Available [facility] 09/11/2019 03:54:55 Tdap 11/07/19 18 completed Not Available [facility] 09/11/2019 03:54:58 COVID-19, mRNA, LNP-S, PF, 100 mcg/0.5mL dose or 50 mcg/0.25mL dose 11/15/19 21 completed Crystal Abigail null, [place] - [facility] 02/10/2023 09:57:19 COVID-19, mRNA, LNP-S, PF, 100 mcg/0.5mL dose or 50 mcg/0.25mL dose 12/13/19 21 completed Crystal Abigail null, [place] - [facility] 02/10/2023 09:57:19 Past Encounters Encounter ID Performer Location Encounter Start Date Encounter Closed Date Diagnosis/Indication Diagnosis SNOMED-CT Code Diagnosis ICD10 Code Diagnosis Note [id number] [facility] [address] [place] [address] 03/28/2008 00:00:[id number] [facility] [address] [place] [address] [address] 10/27/2009 00:00:00 [id number] [facility] [address] [place] [address] 12/01/2009 00:00:00 [id number] [facility] [address] [place] [address] 12/04/2009 00:00:00 [id number] [facility] [address] [place] [address] 07/30/2010 00:00:00 [id number] [facility] [address] [place] [address] 04/16/2011 00:00:00 [id number] [facility] [address] [place] [address] 05/02/2011 00:00:00 [id number] [facility] [address] [place] [address] 05/17/2011 00:00:00 [id number] [facility] [address] [place] [address] 02/05/2012 00:00:00 [id number] [facility] [address] [place] [address] 01/06/2014 00:00:00 [id number] [facility] [address] [place] [address] 03/18/2014 00:00:00 [id number] [facility] [address] [place] [address] 03/18/2014 00:00:00 [id number] [facility] [address] [place] [address] 05/24/2014 00:00:00 [id number] [facility] [address] [place] [address] 09/29/2014 00:00:00 [id number] [facility] [address] [place] [address] 10/24/2015 00:00:00 [id number] Myah Short, [facility] [address] [place] [address] 11/06/2017 09:00:09 11/06/2017 10:25:45 General examination of patient 423517475 Z00.00 Screening for cardiovascular system disease 787145691 Z13.6 Endocrine/ metabolic screening 559456867 Z13.228 Immunization refused [id number] 985978 Z28.9 Body mass index 40+ - severely obese 383744212 Z68.42 Administra tion of tetanus vaccine 845328313 Z23 Fatigue 33802051 R53.83 [id number] Myah Castle [address] [place] [address] 11/14/2017 09:18:05 11/14/2017 11:23:04 Gynecologic examination 12941833 Z01.118 [id number] TING Heath [employer] [facility] [address] [address] 05/13/2019 08:00:05 05/13/2019 09:02:22 Vaginal discharge 583777253 N89.8 Reviewed the various causes of vaginal problems. Reviewed good vulvar/vag inal hygiene and ways to reduce symptoms. Advised to call if treatment is not helpful or if symptoms persist or recur. Cyst of left ovary [id number] 79610 8588016 N83.202 Discussed options. Plan to start OCPs.Patie nt advised to use heat to relieve cramping. Patient will take OTC pain medication s as directed. Patient will report new or worsening abdominal pain, severe vaginal bleeding, and dizziness. Finally patient advised to report moderate/s evere pain or bleeding during or after sex. [id number] Myah Castle [facility] [address] [place], [place] [address] [place] [address] 03/17/2020 13:07:32 03/17/2020 13:37:48 Body mass index 40+ - severely obese 421114196 Z68.42 Amenorrhea 41619026 N91. 2 Nausea and vomiting 1693 2000 R11.2 [id number] Myah Castle [facility] [address] [place], [place] [address] [place] [address] 03/30/2020 16:36:09 03/30/2020 17:14:31 Morbid obesity 721702097 E66.01 Menorrhagia 286409554 N9 2.0 [id number] Myah Castle [address] [place] [address] 05/05/2020 12:21:26 05/05/2020 13:30:29 Benign hypertension 22037484 I10 [id number] Myah Castle [address] [place] [address] 06/23/2020 15:50:02 06/23/2020 16:27:31 Administration of influenza vaccine 31894238 Z23 [id number] Myah Castle [address] [place] [address] 08/04/2020 13:19:48 08/04/2020 15:01:04 Benign hypertension 87973029 I10 Acute sinusitis 96440439 J01.90 [id number] [address] [place] [address] 08/22/2020 16:16:42 08/28/2020 06:47:47 Wheezing 23820051 R06.2 [id number] Myah Castle [address] [place] [address] 10/27/2020 08:19:48 10/27/2020 09:23:48 Asthma 311614876 J45.909 Essential hypertension 45630709 I10 Morbid obesity 235088415 E66.01 Acute sinusitis 08442781 J01.90 Renewal of prescription 176115265 Z76.0 [id number] Myah Castle [address] [place] [address] 01/01/2021 15:15:41 01/01/2021 17:56:11 Dizziness 902089499 R42 Irregular periods 195537 07 N92.6 Allergic rhinitis 388327 04 J30.9 Essential hypertension 80361995 I10 stable [id number] Bella MD Austin Miranda [employer] [address] [place] [address] [place] [address] 01/08/2021 14:38:16 01/08/2021 16:42:45 Abnormal uterine bleeding 0765951444 9100 N93.9 Screening for malignant neoplasm of cervix 353064002 Z12.4 Body mass index 40+ - severely obese 446365113 Z68.43 Hypertensive disorder 38 078184 I10 [id number] Bella Miranda MD [place] [employer] [address] [place] [address] [place] Bryant [address] 02/16/2021 15:05:09 02/16/2021 16:56:47 Abnormal uterine bleeding 0784200670 9100 N93.9 Uterine leiomyoma 206929 05 D25.9 Body mass index 40+ - severely obese 380463789 Z68.43 Hypertensive disorder 38 544525 I10 [id number] Myah Castle [address] [place] [address] 01/18/2021 08:23:16 01/18/2021 09:04:12 Leukocytosis 070768676 D72.829 Benign hypertension 1072 5009 I10 Vertigo 028694019 R42 [id number] Myah Castle [address] [place] [address] 04/06/2021 12:33:49 04/06/2021 13:41:03 Body mass index 40+ - severely obese 922659272 Z68.42 Tinnitus 58810241 H93.13 M ni re's disease 98097510 H81.03 [id number] Myah Castle [address] [place] [address] 05/17/2021 14:27:54 05/17/2021 15:53:03 Essential hypertension 71719341 I10 stable Asthma 899779845 J45.90 9 stable Anxiety 25598983 F41.9 Syncope 804498594 R55 Bilateral tinnitus 54205 00512 102 H93.13 Atypical chest pain 1025 72840 R07.89 [id number] MD Austin Taylor [employer] [address] [place] [address] [place] [address] 05/25/2021 08:34:44 05/25/2021 10:03:08 Abnormal uterine bleeding 5021729898 9100 N93.9 Uterine leiomyoma 006039 05 D25.9 Follicular cyst of right ovary 7641362927 0053984 N83.01 [id number] Bella Miranda MD [place] [employer] [address] [place] [address] [place] Bryant [address] 05/29/2021 09:00:13 05/29/2021 10:11:54 Pre-surgery evaluation 545672456 Z01.818 Abnormal u terine bleeding 2590670135 9100 N93.9 Morbid obesity 068618370 E66.01 [id number] MD Tanika [place] [employer] [address] [place] [address] [place] [address] 06/12/2021 10:40:11 06/12/2021 13:16:16 Postoperative visit 317319221 Z09 Obesity 406407529 E66.9 Abnormal u terine bleeding 7832553728 9100 N93.9 [id number] Myah Castle [place] [address] [place] [address] 06/15/2021 08:05:11 06/15/2021 10:26:29 Anxiety 90993184 F41.9 Tachycardia 4401480 R00. 0 Herpes labialis 5620719 B00.1 Acute sinusitis 86119620 J01.90 Administra tion of influenza vaccine 53674661 Z23 [id number] MD Austin Taylor SH[employer] [address] [place] [address] [place] [address] 07/04/2021 14:28:31 07/04/2021 15:23:36 Intrauterine contraceptive device in situ 763878496 Z97.5 Abnormal u terine bleeding 7158782441 9100 N93.9 [id number] Myah Castle [place] [address] [place] [address] 07/13/2021 08:56:59 07/13/2021 10:01:03 Anxiety 64110993 F41.9 Hearing loss 96406548 H9 1.93 Essential hypertension 05766784 I10 stable [id number] MD Austin Taylor SHOE CLE[employer] [address] [address] 08/31/2021 11:01:31 08/31/2021 11:47:06 Routine gynecologic examination done 1641225937 9101 Z01.419 Depression screening 171 406255 Z13.89 Diet education 55195968 Z71.3 Counseling 446328462 Z71 .82 Exercise counselarturo g. Patient encouraged to exercise 30 minutes 5 days a week. Examinatio n of blood pressure 788607649 Z01.30 Body mass index 40+ - severely obese 001997374 Z68.43 Intrauteri ne contraceptive device in situ 126062779 Z97.5 Abnormal u terine bleeding 4010110662 9100 N93.9 Cyst of right ovary 1223 755691 2477862 N83.127 [id number] Myah Castle [address] [place] [address] 09/21/2021 14:56:37 09/21/2021 15:59:37 Headache 74890127 R51.9 Acute sinusitis 19831845 J01.90 Viral screening 76480659 4 Z11.52 [id number] Myah Castle [address] [place] [address] 10/16/2021 14:02:39 10/16/2021 15:21:39 Anxiety 77988594 F41.9 Essential hypertension 86265785 I10 stable Hearing loss 42180539 H9 1.93 Herpes labialis 3424179 B00.1 [id number] May Blanco [address] [place] [address] 01/18/2022 08:29:12 01/18/2022 09:18:34 Anxiety 60256030 F41.9 Essential hypertension 85721237 I10 Morbid obesity 651755327 E66.01 [id number] May Blanco [address] [place] [address] 03/01/2022 09:15:25 03/01/2022 10:17:26 Body mass index 40+ - severely obese 546279414 Z68.43 Morbid obesity 944499332 E66.01 Pain of ri ght ankle joint 9047781918 1537961 M25.718 [id number] Bella Miranda MD [place] [employer] [address] [place] [address] [place] [address] 04/15/2022 15:23:44 04/15/2022 16:32:16 Contraception care management 519189220 Z30.9 History of female sterilization 047059902 Z92.0 Intrauteri ne contraceptive device in situ 685250250 Z97.5 [id number] [facility] [address] [place], [place] [address] [place] [address] 05/03/2022 14:34:15 05/03/2022 15:07:27 Exposure to SARS-CoV-2 314987713 Z20.822 COVID-19 651710938 U07.1 04/2022 [id number] May Blanco[address] [place] [address] 07/11/2022 10:21:16 07/11/2022 10:49:58 Body mass index 40+ - severely obese 645025961 Z68.43 Morbid obesity 235464799 E66.01 Anxiety 33997314 F41.9 Essential hypertension 64219224 I10 Asthma 006452734 J45.90 9 Allergic rhinitis 392666 04 J30.9 [id number] Bella Miranda MD [place] [employer] [address] [place] [address] [place] [address] 02/17/2023 13:46:35 02/17/2023 14:25:30 Routine gynecologic examination done 1405142853 9101 Z01.419 Depression screening 171 666605 Z13.89 Diet education 99905906 Z71.3 Counseling 054814740 Z71 .82 Exercise counselarturo lee Patient encouraged to exercise 30 minutes 5 days a week. Examinatio n of blood pressure 805923687 Z01.30 Intrauteri ne contraceptive device in situ 316555407 Z97.5 Abnormal u terine bleeding 6252401731 9100 N93.9 Body mass index 40+ - severely obese 325693969 Z68.43 [id number] May Blanco [address] [place] [address] 01/08/2023 12:38:02 01/08/2023 13:34:53 Essential hypertension 93841540 I10 Anxiety 90735588 F41.9 Morbid obesity 882575102 E66.01 Body mass index 40+ - severely obese 607860951 Z68.43 Menorrhagia 795247703 N9 2.0 Gastroesop hageal reflux disease 016427330 K21.9 [id number] Bella Miranda MD [place] [employer] [address] [place] [address] [place] [address] 01/24/2023 13:04:38 01/24/2023 14:19:26 Abnormal uterine bleeding 8719929595 9100 N93.9 Intrauteri ne contraceptive device in situ 552180539 Z97.5 Cyst of right ovary 1223 708623 0876994 N83.011 [id number] May Blanco [address] [address] 02/10/2023 09:51:17 02/10/2023 10:37:46 Body mass index 40+ - severely obese 941524545 Z68.43 Morbid obesity 429090302 E66.01 Acute sinusitis 07190819 J01.90 Herpes labialis 3102606 B00.1 Pharyngitis 810265498 J0 2.9 negative for strep A per rapid screening [id number] MD Austin Taylor SH[employer] [address] [place] [address] [place] [address] 02/28/2023 15:49:03 02/28/2023 17:11:27 Abnormal uterine bleeding 9339207003 9100 N93.9 Intrauteri ne contraceptive device in situ 308925422 Z97.5 Cyst of ovary 65297274 N 83.076 [id number] May Blanco [address] [place] [address] 03/28/2023 13:46:52 03/28/2023 14:43:39 Body mass index 40+ - severely obese 501286926 Z68.43 Morbid obesity 180807115 E66.01 Positive s creening for depression on PHQ-9 (Patient Health Questionnaire 9) 9069711072 21704 Z13.31 Mixed anxi ety and depressive disorder 229835650 F41.8 [id number] Mariya Luis[address] [address] 05/19/2023 08:49:50 05/19/2023 09:54:23 Cellulitis 417118489 L03.90 Spider bite wound 531766 008 T14.8XXD left lateral abdomen [id number] Bella Miranda MD [place] [employer] [address] [place] [address] [place] [address] 05/22/2023 13:51:04 05/22/2023 14:30:58 Abnormal uterine bleeding 7387345982 9100 N93.9 Intrauteri ne contraceptive device in situ 026447996 Z97.5 Cyst of ovary 48644042 N 83.961 [id number] Bella Miranda MD [place] [employer] [address] [place] [address] [place] [address] 08/01/2023 14:16:49 08/01/2023 15:20:21 Abnormal uterine bleeding 8253515132 9100 N93.9 Intrauteri ne contraceptive device in situ 143769673 Z97.5 Cyst of ovary 48295044 N 83.209 Body mass index 40+ - severely obese 442486885 Z68.43 Obesity 364948427 E66.9 [id number] May Blanco [address] [place] [address] 01/20/2024 16:33:36 01/20/2024 17:36:17 Mixed anxiety and depressive disorder 039839103 F41.8 Anxiety 37896322 F41.9 Essential hypertension 89617559 I10 Body mass index 40+ - severely obese 547555544 Z68.43 Morbid obesity 723145771 E66.01 [id number] May Blanco [address] [address] 02/06/2024 14:47:28 02/06/2024 15:46:19 Body mass index 40+ - severely obese 851279150 Z68.43 Morbid obesity 956696843 E66.01 Acute lowe r respiratory tract infection 950580397 J22 Nodule of lung 658765216 R91.1 [id number] Mayrogelio Blanco [address] [place] [address] 04/14/2024 11:23:46 04/14/2024 12:00:47 Body mass index 40+ - severely obese 390514653 Z68.43 Morbid obesity 448960958 E66.01 Acute sinusitis 72045614 J01.90 [id number] Mayrogelio Blanco[address] [place] [address] 07/05/2024 08:55:05 07/05/2024 09:28:12 Mixed anxiety and depressive disorder 329787587 F41.8 Essential hypertension 84953645 I10 Morbid obesity 546573435 E66.01 Visual impairment 633311 003 H54.7 [id number] Mayrogelio Blanco [address] [place] [address] 11/15/2024 14:15:03 11/15/2024 15:21:46 Body mass index 40+ - severely obese 919860140 Z68.43 Morbid obesity 265055882 E66.01 Viral screening 40145085 4 Z11.52 Gastroesop hageal reflux disease 960546777 K21.9 Seasonal allergy 3280342 04 J30.2 Cough 03505014 R05.9 [id number] Mayrogelio Blanco [address] [place] [address] 12/21/2024 16:38:33 12/21/2024 17:44:39 Vasovagal syncope 105843948 R55 Vertigo 612483639 R42 Health Concerns Section Related Observation LastModified by Organization Detai ls LastModified Time None Recorded Concern Status LastModified by Organization Details LastModified Time None Recorded Advance Directives Directive N: Payers Insurance Date Sequence Insurance Name Policy Number Policy Gutiérrez Covered Member ID Gutiérrez Member ID Guarantor Name 06/04/2024 [place] Krystina Velma [id number] Krystina L Venessa 06/04/2024 1 [place] [id number] Krystina L Velma [id number] Krystina L Venessa 01/30/2018 1 USABLE ADMINISTRATORS - [place] (PPO) Celestino Doug Rister [id number] Krystina L Venessa 06/04/2024 2 [employer] [place] Krystina Velma [id number] Krystina L Venessa 06/04/2024 2 [place] Krystina L Velma [id number] Krystina L Venessa 06/04/2024 [id number] Krystina L Venessa [id number] Krystina L Venessa 06/04/2024 [id number] Krystina L Velma [id number] Krystina L Venessa 01/03/2025 [place] [id number] Krystina L Venessa [id number] Krystina L Venessa 06/04/2024 2 [facility] (MEDICAID HMO) Krystina L Venessa [id number] Krystina L Venessa 11/05/2024 1 [place] [id number] Krystina L Venessa [id number] Krystina L Venessa 06/04/2024 [id number] Krystina L Venessa [id number] Krystina Diane Venessa 01/03/2025 1 [employer] [place]) [id number] Krystina Diane Venessa [id number] Krystina Diane Venessa 01/08/2021 1 [place] [id number] Jovany Clifford Jr [id number] Krystina Diane Venessa 04/04/2020 1 UNSPECIFIED REMIT PAYOR Krystina Retanagett 06/04/2024 1 [id number] Krystina Diane Venessa [id number] Krystina Diane Venessa 06/04/2024 1 [place] [id number] Krystina Diane Venessa [id number] Krystina Diane Venessa Notes Date Note Type Note Provider Name and Address Organization Details Recorded Time 02/06/2024 text/html Presents for ED follow up regarding shortness of breath and feverDiagnosed with pneumonia Feeling little betterDoes endorse cough - productive in mornings, mild chest tightness with cough, nasal drainage - clearNo fever or chills.Completed antibiotic series from ED this morningDenies any dizziness, lightheadedness, syncope, palpitations or edema.Compliant with tobacco, alcohol and illicit drug usage. May Blanco APRN [address], [place], [address], [facility] - [facility] 02/06/2024 15:42:25 04/14/2024 text/html Emergency Depart ment Follow-Up RecordReported bypatient.Notes:Review ed hospital records including all testing available with pt Presents for follow up to ED visitFeeling Олег endorse increased stress today. Water leak and broken shower.Does endorse occasional productive cough - greenNo chest pain, shortness of breath, dizziness, lightheadedness, syncope, palpitations or edema. No fever or chillsDenies alcohol, tobacco and illicit drug usageCompliant with medications May Blanco APRN [address], [place], [address], [facility] - [facility] 04/14/2024 12:00:11 07/05/2024 text/html Presents for fol low up regarding anxiety, HTN, GERDFeeling wellReports approximately one month loss of vision in right eye. Has seen cardiology and opthalmology. Evaluated in ED. Had CT head and MRI completed. Has appt with Neurology 07/29/24.Is able to see shadows in right eye for past week.No chest pain, shortness of breath, dizziness, lightheadedness, syncope, palpitations or edema. No fever, chills or cough.Compliant with medicationsDenies any tobacco, alcohol and illicit drug usage May Blanco, [employer] EXAM[employer]ER [address], [place], [address], [facility] - [facility] 07/05/2024 09:27:07 11/15/2024 text/html Presents with 3 days of cough - productive clear, sneezes, mild H/A, nasal drainage - clear, right ear pressure, watery eyesNo fever or chills, N/V/D, sore throatCough is worse when she lays downHas been taking nitequilNo chest pain, shortness of breath, dizziness, lightheadedness, syncope, palpitations or edemaHas been using fluticasone and montelukastNiece with strep May Blanco, [employer] WORK WR[employer] EX[employer]ER [address], [place], [address], [place] - [facility] 11/15/2024 15:12:53 12/21/2024 text/html Presents for epi sodes of vertigoEpisode earlier today was witnessed by husbandHe reports this morning, she was laying in bed, took meclizine, began frothing at mouth with shaking of left arm. Unresponsive to verbal stimuli. Episode lasted 5-10 minutesNo shaking of right arm or legs. No loss of bowel or bladder function. Gradually arouses.Similar episode around of first of month, occurred while at neurology office - sent to ED.Reports evaluation was not diagnosticHas appt with neurology next weekReports long hx of similar symptoms - vertigo, followed by nausea then near syncope.If she is able to take meclizine, symptoms do not progressNo chest pain, shortness of breath, dizziness, lightheadedness, syncope, palpitations or edema.No fever, chills or cough.Compliant with medicationsDenies alcohol, tobacco and illicit drug usage May Blanco, TING [address], [place], [address], [place] - [facility] 12/21/2024 17:36:07 OBGyn Episode No OBEpisode recorded.
--- OUTSIDE RECORDS SUMMARY | 2025-03-09 09:09 | XMS_ITS | Continuity of Care Document ---
Author Organization [facility] [place] [address] [address] [place] [address] Care Team Providers Care Refining Supervisor Name Role Phone PRIMARY PLUS - ALFONSO Primary Care Provider Assessment No assessment recorded. Plan of Treatment Reminders Order Date Submit Date Provider Last Modified By Organization Details Last Modified Time Details Appointments OV EST 30 025 10:00AM MARAH PETERSON NP, S Not available Not available Not available VNG 025 10:00AM JESENIA PENNY Not available Not available Not available Lab None record ed. Referral None record ed. Procedures None record ed. Surgeries None record ed. Imaging None record ed. Medication Orders None record ed. Patient TargetsNo targets recorded. Patient Instructions Encounter Date Encounter Id Patient Instructions Last Modified By Organization Details Last Modified Time 02/07/2025 [id number] Will get set up with a VNG at her earliest convenience for initial workup. [email or web address] Not available 02/07/2025 14:53:05 Reason for Referral None Reported. Results Created Date Observation Date Name Description Value Unit Range Abnormal Flag Note LastModifiedBy Organization Detail LastModifiedTime 01/12/20 elect rocar diogr am No observ ation record ed. SARAH Mv [address], [place], [address], 01/11/2025 10:48:07 01/12/20 25 01/11/2025 elect rocar diogr am No observ ation record ed. [email or web address] Not Available 2024 12:20:34 01/29/20 25 01/28/2025 - gxt stres s test [facility] Name: KATHERINE THORNTON [facility] [address] Phys: Breanna ZEPEDA, [place] [address] : 1985 Age: 39 Sex: F Acct: [id number] Loc: [facility]TH PHONE #: Exam Date: 2024 Status : DEP CLI FAX #: Rad# [id number] Unit# [id number] Admit Date: 2024 EXAMS: CPT CODE: [id number] 762 GXT STRESS TEST 12297 Reason for study: Angina Patien t exerci sed accord ing to a Arley protoc ol for 3 minute s and 11 second s achiev ing a work level of max METs 4.7. The restin g heart rate was 106 bpm and edu to a maximu m heart rate of 179 bpm which repres ents 98% of the cherie l age-pr edicte d heart rate. Restin g blood pressu re 128/88 mmHg and edu to a maximu m blood pressu re of 180/80 mmHg. Restin g EKG shows normal sinus rhythm with nonspe cific ST and T wave change s. With exerci se patien t had 0.5-[address] segmen t depres gilberto. No arrhyt hmia. Heart rate and blood pressu re respon se approp riate. Modera te reduct ion in functi onal capaci ty with nonlim iting chest pain at peak exerci se. Motta treadm ill score -3 which is interm ediate risk. Overal l this is a border line exerci se EKG. 1. Border line exerci se EKG. 2. Modera te reduct ion in functi onal capaci ty. 3. Nonlim iting chest pain at peak exerci se. 4. Interm ediate risk Motta treadm ill score. Electr onical ly Signed by ISIDORO CARLOS MD on 2024 at 0850 Report ed and signed by: ISIDORO CARLOS MD CC: [place] Carlos MD; Effie Blanco APRN Dictat ed Date/T tanya: 2024 (0850) Techno logist : EFFIE SIDDIQUI KER Transc ribed Date/T tanya: 2024 (0850) Transc riptio nist: DR.LOH CHLOE Zamudio onic Signat ure Date/T tanya: 2024 (0850) Printe d Date/T tanya: 2024 (0853) BATCH NO: N/A PAGE 1 Signed Report CC'ed Logic: Orderi ng Provid er: BREANAN CHAUDHRY Attend ing Provid er: BREANNA CHAUDHRY Referr ing Provid er: BREANNA CHAUDHRY Consul ting Provid er: ARMINDA RAYGOZA [email or web address] [place] [id number] [facility], [place], [address], 01/31/2025 10:01:30 02/15/20 25 02/14/2025 elect ana paula champagnegr am inter preta tion* No observ ation record ed. [email or web address] Not Available 2024 12:24:15 Result Notes None recorded. Problems Name Problem SNOMED Code Status Onset Date Resolution Date Notes Provider Name and Address Organization Details Recorded Time Sensorineural hearing loss of bilateral ears 979154713 Active 2024 TRICE MARTE, AUD [address] [facility], [place], [address] , [facility] - [facility] - [place] & [place] 5 15:52:04 Intermittent palpitations 842157390 Active 2022 Isidoro Carlos MD [facility],[address] [facility], [place], [address] , [place] - [facility] - [place] & [place] 3 09:47:59 Essential hypertension 27513494 Active 2022 Isidoro Carlos MD [address] [place] [address],[address], [place], [address] , [facility] - [facility] & [place] 3 09:48:03 Diastolic dysfunction 2156001 Active 2022 Isidoro Carlos MD [address] [place] [address],[address], [place], [address] , [facility] - [facility] & [place] 3 09:48:08 Obesity 900797149 Active 2022 Isidoro Carlos MD [address] [place] [address],[address], [address] , [place] - [facility] & [place] 3 09:48:21 Electrocardio gram abnormal 489592579 Active 2022 Isidoro Carlos MD [address] [place] [address],[facility] e [facility], [place], [address] , [place] - [facility] & [place] 3 09:48:25 Problem Notes None recorded. Procedures Surgical History Date Name Laterality Status Provider Name and Address Organization Details Recorded Time ligation of fallopian tube completed Merylchato LINDSEY - [facility] & [place] 10/14/2022 15:33:48 dilation and curettage completed Merylchato LINDSEY - [facility] & [place] 10/14/2022 15:34:14 cholecystectomy completed Merylchato LINDSEY Ngozi [facility] & [place] 10/14/2022 15:34:25 operation on nose completed Merylchato Ji [place] Melvin [facility] & [place] 10/14/2022 15:34:53 Imaging Results None recorded. Procedure Notes None recorded. Medical Equipment None Reported. Allergies Allergen ID Allergen Name Allergen Category Reaction Reaction Severity Criticality Documentation Date Start Date Code Code System Note Provider Name and Address Organization Details Recorded Time 83518 morphine medicatio n Not available Not available Not available 10/14/2022 7052 RxNorm Meryl hein, [place] - [facility] & [place] 3 15:31:23 Medications Name Sig Start Date Stop Date Status Note LastModified by Organization Details LastModified Time losartan 50 mg tablet Take 1 tablet every day by oral route as directed. active Not Available Not Available No t Available fluoxetine 40 mg capsule Take 1 capsule every day by oral route. active Not Available Not Available No t Available cholestyram ine (bulk) powder active Not Available Not Available Not Available medroxyprog esterone 10 mg tablet TAKE ONE (1) TABLET EVERY DAY BY ORAL ROUTE. 09/01 completed Not Available Not Available Not Available fluconazole 100 mg tablet TAKE ONE (1) TABLET (ORAL) EVERY THREE (3) DAYS FOR 10 DAYS 09/01 completed Not Available Not Available Not Available atorvastati n 40 mg tablet Take 1 tablet every day by oral route. active Not Available Not Available No t Available metformin 500 mg tablet Take 1 tablet twice a day by oral route. active Not Available Not Available No t Available prednisone 10 mg tablet TAKE SIX (6) TABLETS BY MOUTH ON DAY ONE (1) THEN TAKE FIVE (5) TABLETS ON DAY TWO (2) THEN TAKE FOUR (4) TABLETS ON DAY THREE (3) THEN TAKE THREE (3) TABLETS ON DAY FOUR (4) THEN TAKE 2 TABLETS ON DAY FIVE (5) THEN TAKE 1 TABLET ON DAY SIX (6) 10/14 completed Not Available Not Available Not Available doxycycline hyclate 100 mg capsule TAKE ONE (1) CAPSULE TWICE A DAY BY ORAL ROUTE FOR 7 DAYS. 06/24 completed Not Available Not Available Not Available torsemide 20 mg tablet TAKE ONE (1) TABLET EVERY DAY BY ORAL ROUTE NEEDED FOR 30 DAYS. 02/07 completed Not Available Not Available Not Available clindamycin HCl 300 mg capsule TAKE ONE (1) CAPSULE (ORAL) THREE (3) TIMES PER DAY FOR 10 DAYS 09/01 completed Not Available Not Available Not Available azithromyci n 250 mg tablet TAKE ONE (1) TABLET ORAL ROUTE ONCE DAILY FOR FOUR (4) DAYS 06/03 completed Not Available Not Available Not Available ibuprofen 800 mg tablet TAKE ONE (1) TABLET (800 MG) BY ORAL ROUTE THREE (3) TIMES PER DAY WITH FOOD 10/14 completed Not Available Not Available Not Available benzonatate 200 mg capsule TAKE ONE (1) CAPSULE THREE (3) TIMES A DAY BY ORAL ROUTE FOR 10 DAYS. 01/11 completed Not Available Not Available Not Available valacyclovi r 1 gram tablet TAKE ONE (1) TABLET EVERY 12 HOURS BY ORAL ROUTE FOR ONE (1) DAY. 09/01 completed Not Available Not Available Not Available sucralfate 1 gram tablet TAKE ONE (1) TABLET ORAL ROUTE THREE (3) TIMES PER DAY FOR 10 DAYS ON AN EMPTY STOMACH ON WAKING AND AT BEDTIME 02/07 completed Not Available Not Available Not Available famotidine 40 mg tablet TAKE ONE (1) TABLET EVERY DAY BY ORAL ROUTE FOR 90 DAYS. 02/07 completed Not Available Not Available Not Available sulfamethox azole 800 mg-trimetho prim 160 mg tablet TAKE ONE (1) TABLET BY ORAL ROUTE EVERY 12 HOURS FOR 10 DAYS 09/01 completed Not Available Not Available Not Available aspirin 81 mg tablet,juan yed release TAKE ONE (1) TABLET EVERY DAY BY ORAL ROUTE FOR 30 DAYS. 02/07 completed Not Available Not Available Not Available propranolol 10 mg tablet Take 2 tablets 3 times a day by oral route. active Not Available Not Available No t Available famotidine 20 mg tablet TAKE ONE (1) TABLET BY ORAL ROUTE TWO (2) TIMES PER DAY 01/11 completed Not Available Not Available Not Available pantoprazol e 40 mg tablet,juan yed release Take 1 tablet every day by oral route as directed. active Not Available Not Available No t Available triamterene 37.5 mg-hydrochl orothiazide 25 mg tablet TAKE ONE (1) TABLET EVERY DAY BY ORAL ROUTE FOR 90 DAYS. 02/07 completed Not Available Not Available Not Available montelukast 10 mg tablet Take 1 tablet every day by oral route as directed. active Not Available Not Available No t Available hydroxyzine HCl 25 mg tablet Take 1 tablet 3 times a day by oral route. active Not Available Not Available No t Available mupirocin 2 % topical ointment APPLY TOPICALLY THREE (3) TIMES PER DAY FOR 10 DAYS 09/01 completed Not Available Not Available Not Available furosemide 20 mg tablet Take 1 tablet every day by oral route as needed. active Not Available Not Available No t Available ergocalcife rol (vitamin D2) 1,250 mcg (50,000 unit) capsule TAKE ONE (1) CAPSULE BY MOUTH EVERY WEEK 02/07 completed Not Available Not Available Not Available methylpredn isolone 4 mg tablets in a dose pack TAKE DIRECTED FOR 6 DAYS 01/11 completed Not Available Not Available Not Available bromphenira mine-pseudo ephedrine-D M 2 mg-30 mg-10 mg/5 mL oral syrup TAKE 10 ML EVERY FOUR (4) HOURS BY ORAL ROUTE NEEDED FOR FIVE (5) DAYS, FOR COUGH. 01/11 completed Not Available Not Available Not Available fluoxetine 20 mg capsule TAKE ONE (1) CAPSULE EVERY DAY BY ORAL ROUTE FOR 90 DAYS. 10/14 completed Not Available Not Available Not Available fluticasone propionate 50 mcg/actuati on nasal spray,suspe nsion INSTILL ONE (1) SPRAY EVERY DAY BY INTRANASA L ROUTE 02/07 completed Not Available Not Available Not Available amoxicillin 875 mg-potassiu m clavulanate 125 mg tablet TAKE ONE (1) TABLET BY ORAL ROUTE EVERY 12 HOURS FOR 7 DAYS 09/01 completed Not Available Not Available Not Available amoxicillin 500 mg-potassiu m clavulanate 125 mg tablet TAKE 1 TABLET BY MOUTH EVERY 8 HOURS FOR 10 DAYS 06/03 completed Not Available Not Available Not Available Ventolin HFA 90 mcg/actuati on aerosol inhaler Inhale 2 puffs every 4 hours by inhalatio n route. active Not Available Not Available No t Available meclizine 25 mg chewable tablet TAKE ONE (1) TABLET THREE (3) TIMES A DAY BY ORAL ROUTE NEEDED FOR 15 DAYS. 02/07 completed Not Available Not Available Not Available cyclobenzap rine 5 mg tablet TAKE ONE (1) TABLET EVERY 8 HOURS BY ORAL ROUTE NEEDED FOR 10 DAYS. 06/24 completed Not Available Not Available Not Available cholestyram ine (with sugar) 4 gram powder for susp in a packet TAKE ONE (1) PACKET BY MOUTH EVERY DAY 02/07 completed Not Available Not Available Not Available levocetiriz ine 5 mg tablet TAKE ONE (1) TABLET EVERY DAY BY ORAL ROUTE FOR 90 DAYS. 02/07 completed Not Available Not Available Not Available OneTouch Verio test strips DIRECTED TO CHECK BLOOD SUGAR EVERY DAY 02/07 completed Not Available Not Available Not Available OneTouch Verio Flex Meter DIRECTED TO CHECK BLOOD SUGAR EVERY DAY 02/07 completed Not Available Not Available Not Available OneTouch Delica Plus Lancet 33 gauge DIRECTED TO TEST BLOOD SUGAR EVERY DAY 02/07 completed Not Available Not Available Not Available Vitals Date Recorded Body height Body mass index (BMI) Body weight Body temperature Systolic And Diastolic Provider Name and Address Organization Details Last Updated DateTime 02/07/2025 167.64 cm 59.7 kg/m2 216888. 46 g 98.4 [degF] 174/103 mm[Hg] Alejandra Ji [place] - [facility] - [place] & [place] 14:03:52 Social History None recorded. Functional Status Question Answer Note LastModified by Organizat ion Details LastModified Time Do you use any illicit or recreational drugs? No [email or web address] Information not available 10/14/2022 What is your level of alcohol consumption? 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 Family History Relationship Description Onset Age of this Age Resolved Age Notes LastModified by Organization Details LastModified Time Father Heart disease [email or web address] Not available 15:33:21 Mother Heart disease [email or web address] Not available 15:33:21 Medical History Condition Response Dizziness or Fainting Y Swelling Y Chest Pain Y Asthma Y Sleep Apnea Y Hypertension Y Gynecological HistoryNo gynecological history recorded. Obstetrics History GPAL:G 0 P 0 0 0 0 Past Encounters Encounter ID Performer Location Encounter Start Date Encounter Closed Date Diagnosis/Indication Diagnosis SNOMED-CT Code Diagnosis ICD10 Code Diagnosis Note [id number] MARAH PETERSON NP, S [address] [place] [address] 01/11/2025 09:05:32 01/11/2025 11:25:36 Essential hypertension 30061574 I10 Sudden visual loss 35249 004 H53.131 Peripheral edema 9471667 00 R60.0 Intermitte nt palpitations 272550912 R00.2 Diastolic dysfunction 35 80370 I51.9 Obesity 625353300 E66.9 Electrocar diogram abnormal 730815266 R94.31 Cerebellar infarction 95 059624 G46.4 Angina pectoris 81082877 0 I20.9 [id number] Marley Cano MD [facility] [address] [place] [address] 02/07/2025 13:47:01 02/07/2025 14:35:53 Impairment of balance 378923586 R26.89 Peripheral vertigo 17170 001 H81.393 Health Concerns Section Related Observation LastModified by Organization Detai ls LastModified Time None Recorded Concern Status LastModified by Organization Details LastModified Time None Recorded Payers Encounter Date Sequence Insurance Name Policy Number Policy Gutiérrez Covered Member ID Gutiérrez Member ID Guarantor Name 02/07/2025 1 [facility] (MEDICAID HMO) Krystina Clifford [id number] Krystina Diane Venessa Notes Date Note Type Note Provider Name and Address Organization Details Recorded Time 02/07/2025 text/html 02/07/25 yea r old female in office for dizziness. Patient says her dizziness started about 3 years ago. Patient describes her dizziness as seeing a bright light and suddenly getting nauseous. She takes Meclizine immediately to prevent her symptoms from worsening. Patient has a lot of ringing in both ears. 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 She sees a Neurologist at and has had imaging of her head with MRI and CT. No abnormalities found to her knowledge. She does have high blood pressure and take mutiple medications to control this. She see Dr. Hoffman office for her cardiology care. Marley Cano MD [facility], [place], [address], [facility] [place] & [place] 02/07/2025 14:53:20 OBGyn Episode No OBEpisode recorded.
--- OUTSIDE RECORDS SUMMARY | 2025-03-09 09:09 | XMS_ITS | Continuity of Care Document ---
Author Organization [place] - [place] - [place] & [place] [facility] Heart Address [address] [place] [place] [address] Care Team Providers Care Film Sound Engineer Name Role Phone PRIMARY PLUS - ALFONSO Primary Care Provider [phone] Assessment Encounter Date Assessment Date Assessment LastModified by Organization Details LastModified Time 03/02/2025 03/02/2025 Patient Education was printed, I have reviewed the Past Medical, Family, and Social Histories along with ROS and all orders in today's record, and have noted any changes. Medications, charts and records reviewed in full today. - blood pressure 110/76, heart rate 95, oxygen saturation 100% on room air. Weight 367.8 lb. Weight is up 1 lb since last visit. - LAST ECHO: 06/2024 revealed a normal LVEF of 55% to 60% with mild mitral regurgitation. PAST Echocardiogram: 06/2021 revealed normal LVEF of 65% to 70% with normal valves. LAST ISCHEMIC EVAL: GXT: 01/2025 revealed borderline exercise EKG, moderate reduction in functional capacity, non limiting chest pain at peak exercise, intermediate risk Motta treadmill score. - Plan: CTA coronary arteries. Follow-up in 4 to 5 weeks. - -Continue other current medications. -Continue aggressive risk factor modification. -Recommend LDL less than 100. -Encouraged regular exercise and activity. - This note was dictated using Biosceptre software. If something is unclear, or does not make sense, please do not hesitate to contact our office at [phone] for clarification. [email or web address] Not available 03/03/2025 19:34:13 Plan of Treatment Reminders Order Date Submit Date Provider Last Modified By Organization Details Last Modified Time Details Appointments OV EST 30 2024 10:00A M MARAH PETERSON NP, S Not available Not available Not available VNG 2024 10:00A M JESENIA PENNY Not available Not available Not available Lab None recorded. Referral None recorded. Procedures None recorded. Surgeries None recorded. Imaging CT, angiogram , coronary arteries, w/wo contrast 2024 025 [email or web address] Not available 03/03/2025 15:03:55 Medication Orders None recorded. Patient TargetsNo targets recorded. Patient InstructionsNo instructions recorded. Reason for Referral None Reported. Results Created Date Observation Date Name Description Value Unit Range Abnormal Flag Note LastModifiedBy Organization Detail LastModifiedTime 02/15/2002/14/2025 elect rocar diogr am inter preta tion* No observ ation record ed. [email or web address] Not Available 2024 12:24:15 Result Notes None recorded. Problems Name Problem SNOMED Code Status Onset Date Resolution Date Notes Provider Name and Address Organization Details Recorded Time Sensorineural hearing loss of bilateral ears 040291010 Active 2024 TRICE MARTE, AUD [address] [facility], [place], [address] , [facility] & [place] 5 15:52:04 Intermittent palpitations 468489501 Active 2022 Ameya Bhatti MD [facility] [employer] [facility],[employer] e [address] [place] [address], [address] , [facility] - [facility] & [place] 3 09:47:59 Essential hypertension 52061907 Active 2022 Ameya Bhatti MD [facility] [employer] [facility],[employer] e [address] [place] [address], [address] , [facility] - [facility] & [place] 3 09:48:03 Diastolic dysfunction 9369729 Active 2022 Ameya Bhatti MD [address] [place] [address],[employer] [address] [place] [address], [phone] , [facility] [place] 3 09:48:08 Obesity 254154430 Active 2022 Ameya Bhatti MD [address] [place] [address], [address] , [facility] & [place] 3 09:48:21 Electrocardio gram abnormal 948561648 Active 2022 Ameya Bhatti MD [address] [place] [address], [address] , [facility] & [place] 3 09:48:25 Problem Notes None recorded. Procedures Surgical History Date Name Laterality Status Provider Name and Address Organization Details Recorded Time ligation of fallopian tube completed Merylchato Ji ROSALIA [facility] & [place] 10/14/2022 15:33:48 dilation and curettage completed Meryl LINDSEY RICKIE [facility] & [place] 10/14/2022 15:34:14 cholecystectomy completed Merylchato Ji ROSALIA RICKIE [facility] & [place] 10/14/2022 15:34:25 operation on nose completed [facility] & [place] 10/14/2022 15:34:53 Imaging Results None recorded. Procedure Notes None recorded. Medical Equipment None Reported. Allergies Allergen ID Allergen Name Allergen Category Reaction Reaction Severity Criticality Documentation Date Start Date Code Code System Note Provider Name and Address Organization Details Recorded Time 41195 morphine medicatio n Not available Not available Not available 10/14/2022 7052 RxNorm Meryl Bruno n angel luis, ROSALIA [facility] & [place] 3 15:31:23 Medications Name Sig Start Date [...] height Body mass index (BMI) Body weight Oxygen saturation Oxygen saturation in Arterial blood by Pulse oximetry Heart rate Systolic And Diastolic Provider Name and Address Organization Details Last Updated DateTime 167.64 cm 59.4 kg/m2 864907. 27 g 95 % 95 % 100 /min 110/76 mm[Hg] Meryl Carr n [place] - [facility] - [place] & [place] 09:04:01 Social History None recorded. Functional Status Question Answer Note LastModified by Organizat ion Details LastModified Time Do you use any illicit or recreational drugs? No [email or web address] Information not available 10/14/2022 What is your level of alcohol consumption? 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 Family History Relationship Description Onset Age of this Age Resolved Age Notes LastModified by Organization Details LastModified Time Father Heart disease [email or web address] Not available 15:33:21 Mother Heart disease [email or web address] Not available 15:33:21 Medical History Condition Response Swelling Y Chest Pain Y Sleep Apnea Y Dizziness or Fainting Y Hypertension Y Asthma Y Gynecological HistoryNo gynecological history recorded. Obstetrics History GPAL:G 0 P 0 0 0 0 Past Encounters Encounter ID Performer Location Encounter Start Date Encounter Closed Date Diagnosis/Indication Diagnosis SNOMED-CT Code Diagnosis ICD10 Code Diagnosis Note [id number] Marley Cano MD [facility] [address] [place] [id number] 02/07/2025 13:47:01 02/07/2025 14:35:53 Impairment of balance 976421292 R26.89 Peripheral vertigo 92033 001 H81.264 [id number] MARAH PETERSON NP, S [address] [place] [address] 03/02/2025 08:41:15 03/02/2025 09:51:50 Cardiovascular stress test abnormal 643089661 R94.39 Essential hypertension 30955053 I10 Sudden visual loss 25182 004 H53.131 Peripheral edema 4524214 00 R60.0 Intermitte nt palpitations 361987125 R00.2 Diastolic dysfunction 35 70996 I51.9 Obesity 323316301 E66.9 Electrocar diogram abnormal 281581609 R94.31 Cerebellar infarction 95 941952 G46.4 Angina pectoris 12717145 0 I20.9 Health Concerns Section Related Observation LastModified by Organization Detai ls LastModified Time None Recorded Concern Status LastModified by Organization Details LastModified Time None Recorded Payers Encounter Date Sequence Insurance Name Policy Number Policy Gutiérrez Covered Member ID Gutiérrez Member ID Guarantor Name 03/02/2025 1 [facility] (MEDICAID HMO) Krystina Clifford [id number] Krystina Clifford Notes Date Note Type Note Provider Name and Address Organization Details Recorded Time 03/02/2025 text/html Krystina is a 39-year-old female who presents today in follow-up. The patient has a history significant for hypertension, diastolic dysfunction of left ventricle, palpitations, and obesity. Since our last visit, the patient had an exercise stress test revealed borderline exercise EKG, moderate reduction in functional capacity, non limiting chest pain at peak exercise, and intermediate risk Motta treadmill score. Echocardiogram with bubble study not completed as ordered. The patient continues to have intermittent, primarily exertional shortness of breath improves with rest. The patient also has accompanying chest tightness and heaviness. No other complaints or concerns MARAH PETERSON NP, S [address], [place], [address], [facility] - NT [facility] & [place] 03/03/2025 19:36:02 OBGyn Episode No OBEpisode recorded.
--- OUTSIDE RECORDS SUMMARY | 2025-03-09 09:09 | XMS_ITS | Continuity of Care Document ---
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 Medications, charts and records reviewed in full today. - EKG today reveals sinus rhythm with a rate of 84 beats per minute, nonspecific T-wave abnormality, abnormal EKG. Blood pressure 126/78, heart rate 84, weight 366.8 lb. Oxygen saturation 97% on room air. Weight is up 4 lb since last visit. - LAST ECHO: 06/2024 revealed a normal LVEF of 55% to 60% with mild mitral regurgitation. PAST Echocardiogram : 06/2021 revealed normal LVEF of 65% to 70% with normal valves. LAST ISCHEMIC EVAL: GXT: 06/2021 was normal. - Plan: Bubble study echo. Myoview stress test. Torsemide. Follow-up in 4 to 6 weeks. - -Continue other current medications. -Continue aggressive risk factor modification. -Recommend LDL less than 100. -Encouraged regular exercise and activity. - This note was dictated using the grafter software. If something is unclear, or does not make sense, please do not hesitate to contact our office at [phone] for clarification. [email or web address] Not available 01/11/2025 17:50:52 Plan of Treatment Reminders Order Date Submit Date Provider Last Modified By Organization Details Last Modified Time Details Appointments OV EST 30 2024 10:00A M MARAH PETERSON NP, S Not available Not available Not available VNG 2024 10:00A M JESENIA PENNY Not available Not available Not available Lab None recorded. Referral None recorded. Procedures None recorded. Surgeries None recorded. Imaging nuclear stress test [address] [employer], [address] [place] [address] , [place], [address], 01/18/2025 07:37:27 [facility]ca [facility]diogram [email or web address], [address] [place] [address] Dr [address], [place], [address], 01/11/2025 11:17:17 [place], serjio ogram, transthor acic, bubble study - Bubble Study. [address] [employer], [address] [place] [address] , [place], [address], 01/25/2025 07:44:11 Medication Orders torsemide 20 mg tablet [address], [address], 02/07/2025 14:24:25 Patient TargetsNo targets recorded. Patient InstructionsNo instructions recorded. Reason for Referral None Reported. Results Created Date Observation Date Name Description Value Unit Range Abnormal Flag Note LastModifiedBy Organization Detail LastModifiedTime 01/12/20 elect rocar diogr am No observ ation record ed. [address], [place], [address], 01/11/2025 10:48:07 01/12/20 25 01/11/2025 elect rocar diogr am No observ ation record ed. [email or web address] Not Available 2024 12:20:34 01/29/20 25 01/28/2025 - gxt stres s test [facility] Ce Name: KATHERINE THORNTON [employer] [address] Phys: Breanna ZEPEDA, [place] [address] : 1985 Age: 39 Sex: F Acct: [id number] Loc: ARLETH PHONE #: Exam Date: 2024 Status : DEP CLI FAX #: Rad# [id number] Unit# [id number] Admit Date: 2024 EXAMS: CPT CODE: [id number] GXT STRESS TEST 39222 Reason for study: Angina Patien t exerci [...] Report CC'ed Logic: Orderi ng Provid er: BREANNA CHAUDHRY Attend ing Provid er: BREANNA CHAUDHRY Referr ing Provid er: BREANNA CHUADHRY Consul ting Provid er: ARMINDA RAYGOZA [id number] [facility], [place], [address], 01/31/2025 10:01:30 02/15/20 25 02/14/2025 elect ana paula diogr am inter preta tion* No observ ation record ed. [email or web address] Not Available 2024 12:24:15 Result Notes None recorded. Problems Name Problem SNOMED Code Status Onset Date Resolution Date Notes Provider Name and Address Organization Details Recorded Time Sensorineural hearing loss of bilateral ears 887571246 Active 2024 TRICE MARTE, AUD [address] [facility], [place], [address] , [facility] - [facility] - [place] & [place] 5 15:52:04 Intermittent palpitations 489952964 Active 2022 Isidoro Carlos MD [address] [place] [address],[address] [facility], [place], [address] , [place] - [facility] - [place] & [place] 3 09:47:59 Essential hypertension 57471268 Active 2022 Isidoro Carlos MD [address] [place] [address],[address], [place], [address] , [place] - [facility] - [place] & [place] 3 09:48:03 Diastolic dysfunction 8493107 Active 2022 Isidoro Carlos MD [facility] [employer] [facility], [place], [address] , [facility] - [facility] & [place] 3 09:48:08 Obesity 504568910 Active 2022 Isidoro Carlos MD [address] [place] [address],[address], [address] , ROSALIA - [facility] & [place] 3 09:48:21 Electrocardio gram abnormal 633034093 Active 2022 Isidoro Carlos MD [address] [place] [address],[facility] [place] e [facility], [place], [address] , ROS[place] - [facility] & [place] 3 09:48:25 Problem Notes None recorded. Procedures Surgical History Date Name Laterality Status Provider Name and Address Organization Details Recorded Time ligation of fallopian tube completed Merylchato LINDSEY - [facility] & [place] 10/14/2022 15:33:48 dilation and curettage completed Merylchato LINDSEY - [facility] & [place] 10/14/2022 15:34:14 cholecystectomy completed Merylchato LINDSEY Ngozi [facility] & [place] 10/14/2022 15:34:25 operation on nose completed Merylchato Ji ROSALIA - [facility] & [place] 10/14/2022 15:34:53 Imaging Results None recorded. Procedure Notes None recorded. Medical Equipment None Reported. Allergies Allergen ID Allergen Name Allergen Category Reaction Reaction Severity Criticality Documentation Date Start Date Code Code System Note Provider Name and Address Organization Details Recorded Time 83573 morphine medicatio n Not available Not available Not available 10/14/2022 7052 RxNorm Meryl hein, ROSALIA - [facility] & [place] 3 15:31:23 Medications Name Sig Start Date [...] Details Last Updated DateTime 5 167.64 cm 59.2 kg/m2 511610. 68 g 97 % 97 % 84 /min 126/78 mm[Hg] Hnah Max [place] - [facility] - [place] & [place] 5 10:40:43 Social History None recorded. Functional Status Question Answer Note LastModified by Organizat ion Details LastModified Time Do you use any illicit or recreational drugs? No [email or web address] Information not available 10/14/2022 What is your level of alcohol consumption? 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 Family History Relationship Description Onset Age of this Age Resolved Age Notes LastModified by Organization Details LastModified Time Father Heart disease [email or web address] Not available 15:33:21 Mother Heart disease [email or web address] Not available 15:33:21 Medical History Condition Response Swelling Y Chest Pain Y Asthma Y Sleep Apnea Y Dizziness or Fainting Y Hypertension Y Gynecological HistoryNo gynecological history recorded. Obstetrics History GPAL:G 0 P 0 0 0 0 Past Encounters Encounter ID Performer Location Encounter Start Date Encounter Closed Date Diagnosis/Indication Diagnosis SNOMED-CT Code Diagnosis ICD10 Code Diagnosis Note [id number] MARAH PETERSON NP, S [place] [address] [place] [phone] 01/11/2025 09:05:32 01/11/2025 11:25:36 Essential hypertension 95464929 I10 Sudden visual loss 59259 004 H53.131 Peripheral edema 3925440 00 R60.0 Intermitte nt palpitations 579581556 R00.2 Diastolic dysfunction 35 86663 I51.9 Obesity 427849698 E66.9 Electrocar diogram abnormal 092149442 R94.31 Cerebellar infarction 95 062832 G46.4 Angina pectoris 50060978 0 I20.9 Health Concerns Section Related Observation LastModified by Organization Detai ls LastModified Time None Recorded Concern Status LastModified by Organization Details LastModified Time None Recorded Payers Encounter Date Sequence Insurance Name Policy Number Policy Gutiérrez Covered Member ID Gutiérrez Member ID Guarantor Name 01/11/[address] [facility] (MEDICAID HMO) Krystina Clifford [id number] Krystina Clifford Notes Date Note Type Note Provider Name and Address Organization Details Recorded Time 01/11/2025 text/html Krystina is a 39-year-old female who presents today in follow-up. The patient has a history significant for hypertension, diastolic dysfunction of left ventricle, palpitations, and obesity. Since our last visit, the patient had an echocardiogram. Although it was ordered, the bubble study was not completed. The patient continues to have intermittent episodes of left-sided chest discomfort radiating to left shoulder and left neck. The patient reports that these occur both at rest and with exertion. Occasional dizziness. Significant lower extremity swelling, also in her hands. Lasix ineffective. No other complaints or concerns. MARAH PETERSON NP, S [address] [facility],[address], [place], [address], [place] - [facility] & [place] 01/11/2025 17:52:54 OBGyn Episode No OBEpisode recorded.
[2025-03-09 09:39] VITALS: BMI 59.7
[2025-03-09 09:46] VITALS: BP 123/73; PULSE 80; RESP 18; TEMP 36.2; O2SAT 99
[2025-03-09] MEDS: IVABRADINE HCL 7.5MG TABLET PO (10:06)
[2025-03-09] MEDS: METOPROLOL TARTRATE 50MG TABLET PO (10:06)
[2025-03-09 10:27] LABS: Anion Gap 14.1 mEq/L (5-15); Blood Urea Nitrogen 13 mg/dl (7-17); Calcium 9.1 mg/dl (8.4-10.2); Carbon Dioxide 30 mmol/L (22.0-30.0); Chloride 97 mmol/L (98-107); Creatinine Clearance Estimated 102 mL/min (50-200); Creatinine,Serum 0.70 mg/dl (0.52-1.04); Estimated Glomerular Filt Rate 94 ml/min (>60); GFR (African American) 113 ML/MIN (>60); Glucose 108 mg/dl (74-100); HCG Qualitative, Serum Negative (Negative); Potassium 4.1 mmoL/L (3.5-5.1); Sodium 137 mmol/L (136-145)
[2025-03-09 11:15] VITALS: BP 127/79; PULSE 75; RESP 18; O2SAT 98
[2025-03-09 11:20] VITALS: BP 111/62; PULSE 69; RESP 18; O2SAT 98
[2025-03-09 11:25] VITALS: BP 107/64; PULSE 63; RESP 18; O2SAT 96
[2025-03-09] MEDS: SODIUM CHLORIDE 0.9% 10ML SYR (RAD ONLY) 10 ML IV (11:25)
[2025-03-09] MEDS: 0.9 % SODIUM CHLORIDE 50 ML VIAL IV (11:25)
[2025-03-09] MEDS: IOPAMIDOL-370 (76%);100ML BOTTLE 85 ML IV (11:26)
== END 2025-03-09 11:42 | disposition home or self-care (01) ==
PROVIDERS: PCP Nurse Practitioner; Visit Provider Registered Nurse
DX: R94.39 Abnormal result of other cardiovascular function study (principal); R07.9 Chest pain, unspecified
CPT/HCPCS: 75574; 80048; 84703; Q9967